=== PATIENT | male | born 1940 | race Caucasian/White ===

== ENCOUNTER → 2016-10-29 | Outpatient (CLI) | payer BC ==
[~2016-10-29] MED LIST: ASPEC325 PO; CYAN10005 PO; DILT120C50 PO; GLIP5TAB11 PO; INSUINJ SC; LPR100 PO; METF500T5 PO; WARF5TAB90 PO
[2016-10-29 10:39] LABS: ESTIMATED AVERAGE GLUCOSE 134 mg/dl; HA1C FLAG Normal (Normal)
== END ==
LOC: C.LABCC 09:05
PROVIDERS: ATTEND Internal Medicine
DX: E11.9 Type 2 diabetes mellitus without complications (principal)

== ENCOUNTER → 2016-12-24 | Outpatient (CLI) | payer BC ==
[2016-12-24 09:11] LABS: HEMATOCRIT 40.1 % (42-52); MEAN CELL VOLUME 97.8 fL (80-100); MEAN CORPUSCULAR HEMOGLOBIN 31.7 pg (25-34); MEAN CORPUSCULAR HGB CONC 32.4 g/dl (32-36); MEAN PLATELET VOLUME 13.4 fL (7.4-10.4); PLATELET COUNT 173 K/uL (130-400); WHITE BLOOD COUNT 6.43 K/uL (4.8-10.8)
[2016-12-24 09:18] LABS: CALCIUM 9.2 mg/dl (8.5-10.1)
[2016-12-24 09:19] LABS: ALT/SGPT 32 U/L (12-78); BLOOD UREA NITROGEN 20 mg/dl (7-18); BUN/CREATININE RATIO 26.5 (10-20); CARBON DIOXIDE 28 mmol/L (21-32); CHLORIDE 106 mmol/L (98-107); CREATININE 0.74 mg/dl (0.60-1.40); GLUCOSE 77 mg/dl (70-99); SODIUM 143 mmol/L (136-145)
[2016-12-24 09:29] LABS: ALB/GLOB RATIO 0.8 (0.9-2); ALKALINE PHOSPHATASE 76 U/L (45-117); AST/SGOT 18 U/L (15-37)
[2016-12-24 09:39] LABS: BASO % 0.3 %; BASO ABS # 0.02 K/uL (0-0.2); COMPLETE YES; EOS % 1.9 %; IG% 0.2 %; LYMPH % 51.6 %; LYMPH ABS # 3.32 K/uL (1.2-3.4); MONO % 9.6 %; NEUT % 36.4 %
== END ==
LOC: C.LABCC 08:00
PROVIDERS: ATTEND Internal Medicine
DX: I10 Essential (primary) hypertension (principal); E11.9 Type 2 diabetes mellitus without complications; F41.9 Anxiety disorder, unspecified; F03.90 Unspecified dementia, unspecified severity, without behavioral disturbance, psychotic disturbance, mood disturbance, and anxiety

== ENCOUNTER → 2017-03-01 | Outpatient (CLI) | payer BC ==
[~2017-03-01] MED LIST changes: +CRDCD120 PO; -DILT120C50 PO
[2017-03-01 11:19] LABS: ESTIMATED AVERAGE GLUCOSE 120 mg/dl; HA1C FLAG Normal (Normal)
== END ==
LOC: C.LABCC 10:24
PROVIDERS: ATTEND Internal Medicine
DX: E11.9 Type 2 diabetes mellitus without complications (principal)

== ENCOUNTER → 2017-04-27 | Outpatient (CLI) | payer BC ==
[2017-04-27 08:06] LABS: ALT/SGPT 18 U/L (12-78); AST/SGOT 10 U/L (15-37); BLOOD UREA NITROGEN 27 mg/dl (7-18); BUN/CREATININE RATIO 32.1 (10-20); CALCIUM 8.8 mg/dl (8.5-10.1); CARBON DIOXIDE 29 mmol/L (21-32); CHLORIDE 106 mmol/L (98-107); CREATININE 0.83 mg/dl (0.60-1.40); GLUCOSE 68 mg/dl (70-99); POTASSIUM 3.9 mmol/L (3.5-5.1); SODIUM 141 mmol/L (136-145)
[2017-04-27 08:08] LABS: ALB/GLOB RATIO 0.7 (0.9-2); ALKALINE PHOSPHATASE 74 U/L (45-117)
[2017-04-27 10:04] LABS: ESTIMATED AVERAGE GLUCOSE 120 mg/dl; HA1C FLAG Normal (Normal)
== END ==
LOC: C.LABCC 07:39
PROVIDERS: ATTEND Internal Medicine
DX: E11.9 Type 2 diabetes mellitus without complications (principal)

== ENCOUNTER → 2017-08-26 | Outpatient (CLI) | payer BC ==
[~2017-08-26] MED LIST changes: -CRDCD120 PO; +DILT-202 PO
[2017-08-26 08:43] LABS: HEMOGLOBIN A1C 5.8 % (4.5-5.6)
== END ==
LOC: C.LABCC 08:08
PROVIDERS: ATTEND Internal Medicine
DX: E11.9 Type 2 diabetes mellitus without complications (principal)

== ENCOUNTER 2017-10-19 16:41 | Inpatient (IN) | payer BC, OTHER ==
[~2017-10-19] VITALS: Ht 182.9 cm; Wt 85.2 kg
[2017-10-19] MEDS ORDERED: SODIUM CHLORIDE 0.9% 1000ML 1,000 ML IV STA (17:01)
[2017-10-19] MEDS ORDERED: PIPERACILLIN/TAZOBACTAM 4.5 GM/100ML D5W IV STA (17:09)
[2017-10-19] MEDS ORDERED: VANCOMYCIN 1GM ED/ASU OMNICELL IV STA (17:12)
[2017-10-19 17:14] LABS: ISTAT CREATININE 2.4 mg/dl (0.6-1.3); ISTAT IONIZED CALCIUM 1.12 mmol/l (1.12-1.32); ISTAT POTASSIUM 4.6 mEq/L (3.3-5.0)
--- NOTE | 2017-10-19 17:17 | DIAGNOSTIC IMAGING REPORT ---
SINGLE VIEW CHEST CLINICAL HISTORY: Sepsis. FINDINGS: An AP, portable, upright chest radiograph is compared to study dated 04/06/2015 and correlated with chest CT dated 12/08/2005. The heart is enlarged and there is atherosclerotic calcification of the thoracic aorta. The pulmonary vasculature is noncongested. Emphysema and chronic interstitial thickening are similar to previous. There is patchy airspace consolidation at the left lung base. The right lung is grossly clear. No large pleural effusion is identified. No pneumothorax is seen. The skeletal structures are osteopenic. The bony thorax is grossly intact. IMPRESSION: 1. Patchy airspace consolidation is seen at the left lung base and is typical in appearance for pneumonia. Clinical correlation will be required and radiographic follow-up to resolution is recommended. 2. Cardiomegaly and emphysema. Electronically signed by: Gregorio Marlow M.D. 10/19/2017 5:15 PM Dictated Date/Time: 10/19/2017 5:10 PM
[2017-10-19 17:22] LABS: MEAN CORPUSCULAR HGB CONC 31.6 g/dl (32-36)
[2017-10-19] MEDS ORDERED: ACETAMINOPHEN 650 MG SUPP PR STA (17:22)
[2017-10-19 17:32] LABS: INR 1.3 (0.9-1.1); PTT PATIENT 25.1 SECONDS (21.0-31.0)
[2017-10-19 17:33] LABS: HEMATOCRIT 50.9 % (42-52); HEMOGLOBIN 16.1 g/dL (14.0-18.0); MEAN CELL VOLUME 102.8 fL (80-100); MEAN CORPUSCULAR HEMOGLOBIN 32.5 pg (25-34); RED CELL DISTRIBUTION WIDTH CV 13.8 % (11.5-14.5); RED CELL DISTRIBUTION WIDTH SD 51.7 fL (36.4-46.3); WHITE BLOOD COUNT 6.83 K/uL (4.8-10.8)
[2017-10-19 17:53] LABS: ALKALINE PHOSPHATASE 117 U/L (45-117); ALT/SGPT 36 U/L (12-78); AST/SGOT 29 U/L (15-37); BLOOD UREA NITROGEN 67 mg/dl (7-18); CALCIUM 9.2 mg/dl (8.5-10.1); CARBON DIOXIDE 22 mmol/L (21-32); CREATININE 3.13 mg/dl (0.60-1.40); GLUCOSE 526 mg/dl (70-99); POTASSIUM 4.3 mmol/L (3.5-5.1); SODIUM 157 mmol/L (136-145)
[2017-10-19 18:00] LABS: BASO % 0.1 %; BASO ABS # 0.01 K/uL (0-0.2); IG# 0.02 K/uL (0.00-0.02); LYMPH % 21.4 %; LYMPH ABS # 1.46 K/uL (1.2-3.4); MONO % 6.3 %; MONO ABS # 0.43 K/uL (0.11-0.59); NEUT % 71.9 %; NEUT ABS # 4.91 K/uL (1.4-6.5); PLATELET COUNT 111 K/uL (130-400)
[2017-10-19] MEDS ORDERED: SODIUM CHLORIDE 0.9% 1000ML 1,000 ML IV SCH (18:04)
[2017-10-19] MEDS ORDERED: ACET-1311 PO (18:09)
[2017-10-19] MEDS ORDERED: ACET-1693 PO (18:12)
[2017-10-19] MEDS ORDERED: ASPI81TA28 PO (18:13)
[2017-10-19] MEDS ORDERED: DILT-115 PO (18:14)
[2017-10-19] MEDS ORDERED: DC ALL PREVIOUSLY ORDERED DIABETES MEDS ONE (18:15)
[2017-10-19] MEDS ORDERED: MoRPHine SULFATE 2 MG/ML CARP IV PRN (18:15)
[2017-10-19] MEDS ORDERED: ICU PROTOCOL FOR HYPERGLYCEMIA PRN (18:15)
[2017-10-19] MEDS ORDERED: DKA GOAL RANGE 150-250 mg/dl 1 EA ONE (18:15)
[2017-10-19] MEDS ORDERED: PHARMACY GLYCEMIC MGMT CONSULT PRN (18:15)
[2017-10-19] MEDS ORDERED: VANCOMYCIN CONSULT ACTIVE PRN (18:15)
[2017-10-19] MEDS ORDERED: MAGNESIUM HYDROXIDE SUSP 30 ML UDC PO PRN (18:15)
[2017-10-19] MEDS ORDERED: NITROGLYCERIN 0.4 MG SL PER TAB CHARGE SL PRN (18:15)
[2017-10-19] MEDS ORDERED: PIPERACILL/TAZOBAC CONSULT ACTIVE PRN (18:15)
[2017-10-19] MEDS ORDERED: SEVERE STRESS LEVEL ONE (18:15)
[2017-10-19] MEDS ORDERED: METOPROLOL TARTRATE 1 MG/ML VIAL IV PRN (18:15)
[2017-10-19] MEDS ORDERED: ONDANSETRON INJ 2 MG/ML 2 ML VIAL IV PRN (18:15)
[2017-10-19] MEDS ORDERED: ALUMINUM/MAGNESIUM/SIMETH (MAALOX MAX) 30 ML UDC PO PRN (18:15)
[2017-10-19] MEDS ORDERED: LORAZEPAM 1 MG TAB PO PRN (18:15)
[2017-10-19] MEDS ORDERED: BISA10SU3 PR (18:16)
[2017-10-19] MEDS ORDERED: INSPMPHMLG SQ (18:19)
[2017-10-19] MEDS ORDERED: INSU100I SQ (18:21)
[2017-10-19] MEDS ORDERED: LORA-741 PO (18:33)
[2017-10-19] MEDS ORDERED: METO100T14 PO (18:34)
[2017-10-19] MEDS ORDERED: TAMS0.4C38 PO (18:35)
[2017-10-19] MEDS ORDERED: EFF/375 PO (18:36)
[2017-10-19] MEDS ORDERED: INSULIN IV INFUSION PROTOCOL SCH (18:44)
[2017-10-19] MEDS ORDERED: NovoLIN R BOLUS FROM BAG IV ONE (19:00)
[2017-10-19] MEDS ORDERED: INSULIN REGULAR 250 UNITS in SODIUM CHLORIDE 0.9% 250ML 250 ML IV SCH (19:00)
[2017-10-19] MEDS ORDERED: INSULIN ASPART 100 UNITS/ML 3 ML PEN SC SCH (19:00)
--- NOTE | 2017-10-19 19:03 | History and Physical ---
History & Physical Date & Time of Service: Oct 19, 2017 at 18:36 Chief Complaint: Unresponsive Primary Care Physician: Evelin Rashid History of Present Illness Source: family, clinic records, hospital records Patient is a 77 y/o male, with PMHx of dementia, chronic a.fib, T2DM, anxiety/ depression, and BPH, who presented to ED from [facility] due to unresponsiveness and tachycardia. No history obtained from patient due to status. When patient arrived to ED, he was in a.fib w/ RVR- rates in 220s, hypotensive at 77/44, febrile at 38.7. He was cardioverted with 200J and HR improved. CXR showing L lung base PNA, UA dirty, evidence of DKA. He was treated w/ IV NSS bolus, Vancomycin and Zosyn x1 in ED. BPs and HR continue to improve. Daughter is at bedside. DNR/DNI, no extensive measures. Does not want central line placed. Daughter is OK with IV fluids, antibiotics, and additional noninvasive measures for this time being. ROS not obtained. Past Medical/Surgical History Medical Problems: dementia chronic a.fib T2DM BPH anxiety/depression back surgery 1986 Family History Diabetes mellitus Social History Smoking Status: Unknown if Ever Smoked Drug Use: none Marital Status: Occupational Status: retired Immunizations History of Influenza Vaccine: No History of Tetanus Vaccine?: Yes History of Pneumococcal: No History of Hepatitis B Vaccine: No Allergies Coded Allergies: No Known Allergies (Verified , 01/15/14) Home Medications Scheduled Acetaminophen Tab (Tylenol), 650 MG PO Q12 Aspirin (Aspirin), 81 MG PO QAM Aspirin (Aspirin Ec), 81 MG PO QAM Bisacodyl (Dulcolax), 10 MG AK PRN/UD Cyanocobalamin (Vitamin B-12), 1,000 MCG PO DAILY Diltiazem Hcl Ext Rel (Tiazac), 240 MG PO DAILY Glipizide (Glucotrol), 5 MG PO BID Insulin Lispro (Human) (Humalog), SQ PRN Insulin, Isophane Human (Nph) (Humulin N), 15 UNITS SC HS Lorazepam (Ativan), 0.25 MG PO HS Metformin Hcl Er (Glucophage Er), 500 MG PO BID Metoprolol Tartrate (Metoprolol Tartrate), 100 MG PO BID Metoprolol Tartrate (Lopressor) (Lopressor), 100 MG PO BID Tamsulosin Hcl (Flomax), 0.4 MG PO QPM Venlafaxine Hcl (Effexor), 37.5 MG PO QAM Warfarin Sodium (Coumadin), 1 TAB PO DAILY Scheduled PRN Acetaminophen (Tylenol), 650 MG PO Q12 PRN for PAIN OR TEMP> 100F Physical Exam Vital Signs Date Time Temp Pulse Resp B/P (MAP) Pulse Ox O2 Delivery O2 Flow Rate FiO2 10/19/17 18:15 126 30 127/86 100 Non-Rebreather 15.0 10/19/17 17:31 157 34 99/83 99 Non-Rebreather 15.0 10/19/17 16:51 204 10/19/17 16:45 38.7 222 52 77/44 99 Non-Rebreather 15.0 10/19/17 16:45 Room Air General Appearance: + mild distress Head: normocephalic, atraumatic Eyes: PERRL Neck: supple Respiratory/Chest: no respiratory distress, no accessory muscle use, + pertinent finding (course breath sounds throughout ) Cardiovascular: + tachycardia, + irregularly irregular Abdomen/GI: normal bowel sounds, non tender, soft Back: normal inspection Extremities/Musculoskelatal: no calf tenderness, no pedal edema Neurologic/Psych: + pertinent finding (nonresponsive ) Skin: normal color, warm/dry, no rash Diagnostics Laboratory Results Results Past 24 Hours Test 10/19/17 16:54 10/19/17 16:58 10/19/17 17:00 10/19/17 17:01 Range/Units White Blood Count 6.83 4.8-10.8 K/uL Red Blood Count 4.95 4.7-6.1 M/uL Hemoglobin 16.1 14.0-18.0 g/dL Hematocrit 50.9 42-52 % Mean Corpuscular Volume 102.8 80-100 fL Mean Corpuscular Hemoglobin 32.5 25-34 pg Mean Corpuscular Hemoglobin Concent 31.6 32-36 g/dl Platelet Count 111 130-400 K/uL Neutrophils (%) (Auto) 71.9 % Lymphocytes (%) (Auto) 21.4 % Monocytes (%) (Auto) 6.3 % Eosinophils (%) (Auto) 0.0 % Basophils (%) (Auto) 0.1 % Neutrophils # (Auto) 4.91 1.4-6.5 K/uL Lymphocytes # (Auto) 1.46 1.2-3.4 K/uL Monocytes # (Auto) 0.43 0.11-0.59 K/uL Eosinophils # (Auto) 0.00 0-0.5 K/uL Basophils # (Auto) 0.01 0-0.2 K/uL RDW Standard Deviation 51.7 36.4-46.3 fL RDW Coefficient of Variation 13.8 11.5-14.5 % Immature Granulocyte % (Auto) 0.3 % Immature Granulocyte # (Auto) 0.02 0.00-0.02 K/uL Prothrombin Time 13.6 9.0-12.0 SECONDS Prothromb Time International Ratio 1.3 0.9-1.1 Activated Partial Thromboplast Time 25.1 21.0-31.0 SECONDS Partial Thromboplastin Ratio 1.0 Sodium Level 157 136-145 mmol/L Potassium Level 4.3 3.5-5.1 mmol/L Chloride Level 119 98-107 mmol/L Carbon Dioxide Level 22 21-32 mmol/L Anion Gap 16.0 24.0 16-25 mmol/L Blood Urea Nitrogen 67 7-18 mg/dl Creatinine 3.13 0.60-1.40 mg/dl Estimated GFR () 21.2 Estimated GFR (Non- 18.3 BUN/Creatinine Ratio 21.2 10-20 Random Glucose 526 70-99 mg/dl Calcium Level 9.2 8.5-10.1 mg/dl Total Bilirubin 1.0 0.2-1 mg/dl Aspartate Amino Transf (AST/SGOT) 29 15-37 U/L Alanine Aminotransferase (ALT/SGPT) 36 12-78 U/L Alkaline Phosphatase 117 45-117 U/L Troponin I 0.081 0-0.045 ng/ml Total Protein 8.0 6.4-8.2 gm/dl Albumin 3.0 3.4-5.0 gm/dl Globulin 5.0 2.5-4.0 gm/dl Albumin/Globulin Ratio 0.6 0.9-2 Beta-Hydroxybutyric Acid 25.93 0.2-2.81 mg/dL Bedside Lactic Acid Venous 7.75 0.90-1.70 mmol/L Urine Color DK YELLOW Urine Appearance TURBID CLEAR Urine pH 5.5 4.5-7.5 Urine Specific [place] 1.020 1.000-1.030 Urine Protein 2+ NEG Urine Glucose (UA) 3+ NEG Urine Ketones TRACE NEG Urine Occult Blood 2+ NEG Urine Nitrite NEG NEG Urine Bilirubin NEG NEG Urine Urobilinogen NEG NEG Urine Leukocyte Esterase LARGE NEG Urine WBC (Auto) >30 0-5 /hpf Urine RBC (Auto) 5-10 0-4 /hpf Urine Hyaline Casts (Auto) 0-5 /lpf Urine Epithelial Cells (Auto) 20-30 0-5 /lpf Urine Bacteria (Auto) 4+ NEG Urine Pathogenic Casts 0 /lpf Urine Yeast (Auto) NONE PRSENT Bedside Hemoglobin 16.7 14.0-18.0 g/dl Bedside Hematocrit 49 42-52 % Bedside Sodium 161 135-144 mEq/L Bedside Potassium 4.6 3.3-5.0 mEq/L Bedside Chloride 120 101-112 mEq/L Bedside Total CO2 22 24-31 mEq/l Bedside Blood Urea Nitrogen 62 7-18 mg/dl Bedside Creatinine 2.4 0.6-1.3 mg/dl Bedside Glucose (other) 522 70-99 mg/dl Bedside Ionized Calcium ([place]) 1.12 1.12-1.32 mmol/l Test 10/19/17 18:04 Range/Units Microbiology Results 10/19/17 Blood Culture, Received Pending 10/19/17 Blood Culture, Received Pending 10/19/17 Urine Culture, Received Pending Diagnostic Radiology SINGLE VIEW CHEST CLINICAL HISTORY: Sepsis. FINDINGS: An AP, portable, upright chest radiograph is compared to study dated 04/06/2015 and correlated with chest CT dated 12/08/2005. The heart is enlarged and there is atherosclerotic calcification of the thoracic aorta. The pulmonary vasculature is noncongested. Emphysema and chronic interstitial thickening are similar to previous. There is patchy airspace consolidation at the left lung base. The right lung is grossly clear. No large pleural effusion is identified. No pneumothorax is seen. The skeletal structures are osteopenic. The bony thorax is grossly intact. IMPRESSION: 1. Patchy airspace consolidation is seen at the left lung base and is typical in appearance for pneumonia. Clinical correlation will be required and radiographic follow-up to resolution is recommended. 2. Cardiomegaly and emphysema. Electronically signed by: Gregorio Marlow M.D. 10/19/2017 5:15 PM Dictated Date/Time: 10/19/2017 5:10 PM The status of this report is Signed. Draft = Not yet reviewed or approved by Radiologist. Signed = Reviewed and approved by Radiologist. EKG JAZMIN LARRY ID:[id number] 19-OCT-2017 17:18:43 [facility] Poor data quality, interpretation may be adversely affected Atrial fibrillation with rapid ventricular response Left axis deviation Nonspecific ST and T wave abnormality Abnormal ECG When compared with ECG of 06-APR-2015 16:37, ST now depressed in Lateral leads Nonspecific T wave abnormality now evident in Lateral leads 25mm/s 10mm/mV 150Hz 8.0 SP2 12SL 241 ROME: 0 Referred by: Referred Self Unconfirmed Vent. rate 155 BPM AK interval * ms QRS duration 76 ms QT/QTc 328/526 ms P-R-T axes * -38 41 1940 (77 yr) Male 109in 1lb Room:[facility] Loc:15 [employer] Maker:MYLES Chung ind: Impression Assessment and Plan Patient is a 77 y/o male, with PMHx of dementia, chronic a.fib, T2DM, and BPH, who presented to ED from [facility] due to unresponsiveness and tachycardia. Chronic a.fib w/ RVR, sepsis secondary to L lung base PNA/UTI POA: - Admit to ICU- director of epidemiology consulted - Trend cardiac enzymes - Continue Diltiazem and Metoprolol w/ hold parameter and IV Metoprolol PRN for HR >120 w/ hold parameters - Will hold Coumadin and place on IV Heparin gtt - DuoNebs QID and PRN for SOB/wheezing - IV Vancomycin + Zosyn - BCx, UCx, MRSA swab pending DKA, T2DM: - Hold Metformin and Glipizide - DKA protocol- IVF, insulin, follow labs - Pharmacy consulted for glycemic management ALONDRA likely secondary to dehydration: IV NSS @ 150 ml/hr, follow PRP Anxiety/depression: Hold Effexor BPH: Hold Flomax GI prophylaxis: IV Protonix DVT prophylaxis: IV Heparin Code status: LEVEL V, DNR Dispo: From [facility] Attending documentation: Patient seen and examined, chart reviewed, case discussed with AN Hernandez and I agree with her assessment and plan as above. Briefly, patient is a 77yo male with history of dementia, AF, and DM. He is a resident of [facility] and was send here due to tachycardia and unresponsiveness. When he arrived to the ED he was tachycardic with HR 220 and SBP in the 70s. He was cardioverted with 200 J with improvement in hemodynamics. Physical exam: Patient tachycardic at 116. He is unresponsive/obtunded, does not respond to verbal stimuli, does not follow commands. He is thin, chronically ill appearing. HEENT with dry mucus membranes and poor oral care. Neck supple. +S1/S2, irregularly irregular, tachycardic, no m/r/g, Lungs with coarse breath sounds bilaterally, abdomen soft, NT/ND. No LE edema Labs significant for NA of 157, Mj=255, BUN=67, Cr=3.13, Jgn=811, Lactate=7.75, Trop=0.081 and +UA Assessment: 77yo male with dementia, AF, DM presenting with AMS/tachycardia and multiple metabolic derangement. 1. Hypernatremia No=126. Free water deficit of 2.2 L, will give D5W at 80mL/ hr, frequent Na checks 2. Hyperglycemia insulin gtt per protocol 3. AF Continue Diltiazem and Metoprolol for rate control, Heparin gtt for anticoagulation 4. Vanc and Zosyn for possible infectious source, taylor culture and deescalate abx as appropriate 5. Remainder of plan as above Resuscitation Status LEVEL V, DNR VTE Prophylaxis Will order VTE Prophylaxis: Yes
[2017-10-19] MEDS ORDERED: DEXTROSE 5% 1000ML 1,000 ML IV SCH (19:30)
[2017-10-19] MEDS ORDERED: HEPARIN 25000 UNIT/500 ML D5W ONE (19:37)
[2017-10-19] MEDS ORDERED: HEPARIN SOD (PORCINE) 1000 UNIT/ML 10 ML VIAL ONE (19:37)
[2017-10-19 19:44] LABS: CALCIUM 8.7 mg/dl (8.5-10.1); CREATININE 2.94 mg/dl (0.60-1.40); POTASSIUM 4.5 mmol/L (3.5-5.1)
[2017-10-19] MEDS ORDERED: HEPARIN 25,000 UNIT/500ML D5W 500 ML IV SCH (19:45)
[2017-10-19] MEDS ORDERED: PANTOprazole INJ 40 MG in SYRINGE 0 ML IV ONE (19:52)
--- NOTE | 2017-10-19 19:53 | Critical Care Consultation ---
Critical Care Consultation Date of Consultation: Oct 19, 2017. Attending Physician: Dr. Shanta Paige Reason for Consultation: Unresponsiveness History of Present Illness Wai Salazar is a 77 yo male who presents to the hospital today 2/2 being found unresponsive and tachycardic in the 200's at [facility] where he is a resides. Daughter was present prior to my arrival and did state to Dr. Mota that pt is a DNR/DNI. He is to have no advanced lines as well. He may be cardioverted and receive blood products. At this point, pt was cardioverted once in the ED for a HR of 220 at which point is SBP was in the 70s. Vitals did improved. Pt is febrile and CXR demonstrates LLL PNA. U/A demonstrates signs of infection. Labs are significant for DKA, BSG 526, Cr 3.13 , Sodium 157, and elevated troponin. Pts ED course included IV Zosyn and Vancomycin. NSS Bolus x 1 with LR running. ROS could not be obtained secondary to pt unresponsiveness at this time. PMHx includes chronic A. Fib, T2DM, anxiety/depression, CVA with progressive dementia in 2014, and BPH. Past Medical/Surgical History Medical Problems: Dementia Diabetes mellitus Anxiety Depression T2DM Chronic A. Fib CVA 2014 Surgical Hx: Back Hx 1986 Family History Diabetes mellitus Non-Contributory Social History Smoking Status: Unknown if Ever Smoked Drug Use: none Marital Status: Housing Status: [facility] Occupation Status: retired Allergies Coded Allergies: No Known Allergies (Verified , 01/15/14) Home Medications Scheduled Acetaminophen Tab (Tylenol), 650 MG PO Q12 Aspirin (Aspirin), 81 MG PO QAM Aspirin (Aspirin Ec), 81 MG PO QAM Bisacodyl (Dulcolax), 10 MG DC PRN/UD Cyanocobalamin (Vitamin B-12), 1,000 MCG PO DAILY Diltiazem Hcl Ext Rel (Tiazac), 240 MG PO DAILY Glipizide (Glucotrol), 5 MG PO BID Insulin Lispro (Human) (Humalog), SQ PRN Insulin, Isophane Human (Nph) (Humulin N), 15 UNITS SC HS Lorazepam (Ativan), 0.25 MG PO HS Metformin Hcl Er (Glucophage Er), 500 MG PO BID Metoprolol Tartrate (Metoprolol Tartrate), 100 MG PO BID Metoprolol Tartrate (Lopressor) (Lopressor), 100 MG PO BID Tamsulosin Hcl (Flomax), 0.4 MG PO QPM Venlafaxine Hcl (Effexor), 37.5 MG PO QAM Warfarin Sodium (Coumadin), 1 TAB PO DAILY Scheduled PRN Acetaminophen (Tylenol), 650 MG PO Q12 PRN for PAIN OR TEMP> 100F Current Inpatient Medications Current Inpatient Medications Medications (Trade) Dose Ordered Sig/Дмитрий Route Start Time Stop Time Status Last Admin Dose Admin Lorazepam (Ativan Tab) 1 mg Q6H PRN PO 10/19/17 18:15 11/18/17 18:14 Nitroglycerin (Nitrostat Tab) 0.4 mg UD PRN SL 10/19/17 18:15 11/18/17 18:14 Al Hydrox/Mg Hydrox/Simethicone (Maalox Max Susp) 15 ml Q4H PRN PO 10/19/17 18:15 11/18/17 18:14 Magnesium Hydroxide (Milk Of Magnesia Susp) 30 ml Q12H PRN PO 10/19/17 18:15 11/18/17 18:14 Ondansetron HCl (Zofran Inj) 4 mg Q6H PRN IV 10/19/17 18:15 11/18/17 18:14 Levalbuterol (Xopenex 1.25MG/ 0.5ML Neb) 1.25 mg QIDR INH 10/19/17 20:00 11/18/17 19:59 Ipratropium [place] (Atrovent 0.02% 0.5MG/2.5ML Neb) 0.5 mg QIDR INH 10/19/17 20:00 11/18/17 19:59 Morphine Sulfate (MoRPHine SULFATE INJ) 2 mg Q2H PRN IV 10/19/17 18:15 11/02/17 18:14 Miscellaneous Information (Icu Protocol For Hyperglycemia) 1 ea PRN PRN N/A 10/19/17 18:15 10/21/17 18:14 Insulin Aspart (novoLOG ASPART) SLIDING SCALE PCHS SC 10/19/17 19:00 11/18/17 18:59 Sodium Chloride 1,000 ml @ 150 mls/hr Q6H40M IV 10/19/17 18:04 11/18/17 18:03 UNV Miscellaneous Information (PENDING NSS+20mEq KCL IVF) 1 ea Q2H N/A 10/19/17 18:15 11/18/17 18:14 Miscellaneous Information (PENDING D5 1/ 2NS+20mEq KCL IVF) 1 ea Q2H N/A 10/19/17 18:15 11/18/17 18:14 Miscellaneous Information (Consult Glycemic Management Pharmacy) 1 ea UD PRN N/A 10/19/17 18:15 11/18/17 18:14 Vancomycin HCl 1000 mg/Sodium Chloride 270 ml @ 125 mls/hr Q12 IV 10/19/17 21:00 10/26/17 20:59 UNV Miscellaneous Information (Consult) 1 ea UD PRN N/A 10/19/17 18:15 11/18/17 18:14 Piperacillin Sod/ Tazobactam Sod 3.375 gm/Dextrose 115 ml @ 28.75 mls/ hr Q8 IV 10/19/17 22:00 10/26/17 21:59 UNV Miscellaneous Information (Consult) 1 ea UD PRN N/A 10/19/17 18:15 11/18/17 18:14 Diltiazem HCl (TIAzac CAP) 240 mg DAILY PO 10/20/17 09:00 11/19/17 08:59 Metoprolol Tartrate (Lopressor Tab) 100 mg BID PO 10/19/17 21:00 11/18/17 20:59 Metoprolol Tartrate (Lopressor Iv) 5 mg Q4 PRN IV. 10/19/17 18:15 11/18/17 18:14 UNV Heparin Sodium/ Dextrose 1 ea Q15M N/A 10/19/17 18:48 11/18/17 18:47 Pantoprazole Sodium 40 mg/ Syringe 10 ml @ 5 mls/min NOW ONCE IV 10/19/17 19:00 10/19/17 19:01 UNV Insulin Human Regular 250 units/ Sodium Chloride 252.5 ml @ 0 mls/hr Q24H IV 10/19/17 19:00 11/18/17 18:59 Review of Systems ROS unattainable 2/2 to pt being unresponsive. Physical Exam Date Time Temp Pulse Resp B/P (MAP) Pulse Ox O2 Delivery O2 Flow Rate FiO2 10/19/17 18:58 38.0 119 34 115/67 100 Non-Rebreather 10/19/17 18:15 126 30 127/86 100 Non-Rebreather 15.0 10/19/17 17:31 157 34 99/83 99 Non-Rebreather 15.0 10/19/17 16:51 204 10/19/17 16:45 38.7 222 52 77/44 99 Non-Rebreather 15.0 10/19/17 16:45 Room Air Vital Signs - as noted Laboratory Data - as noted Physical Exam: General - Laying in bed, 15L non-rebreather in place, no response to verbal stimuli Eyes - PERRL, No icterus, gaze conjugate ENT - Mucosa dry, no lesions or candidiasis, edentulous Neck - Supple, trachea midline, no masses or lymphadenopathy, no JVD or bruits Lungs - No paradoxical chest wall movement, extremely coarse, no wheezes or rales Heart - A fib RVR, No murmur, rubs, clicks, or gallops appreciated Abdomen - BS present, no bruits noted, tympanic to percussion, soft, nondistended, no organomegaly Extremities - No edema, weak pedal pulses intact Neuro - [place] Coma Score: 6 Strength: Movement noted to all extremities Reflexes: normal and equal CN:PERRL, no facial asymmetry, uvula/tongue midline, no unilateral signs noted Laboratory Results Last 24 Hours Test 10/19/17 16:54 10/19/17 16:58 10/19/17 17:00 10/19/17 17:01 White Blood Count 6.83 K/uL Red Blood Count 4.95 M/uL Hemoglobin 16.1 g/dL Hematocrit 50.9 % Mean Corpuscular Volume 102.8 fL Mean Corpuscular Hemoglobin 32.5 pg Mean Corpuscular Hemoglobin Concent 31.6 g/dl Platelet Count 111 K/uL Neutrophils (%) (Auto) 71.9 % Lymphocytes (%) (Auto) 21.4 % Monocytes (%) (Auto) 6.3 % Eosinophils (%) (Auto) 0.0 % Basophils (%) (Auto) 0.1 % Neutrophils # (Auto) 4.91 K/uL Lymphocytes # (Auto) 1.46 K/uL Monocytes # (Auto) 0.43 K/uL Eosinophils # (Auto) 0.00 K/uL Basophils # (Auto) 0.01 K/uL RDW Standard Deviation 51.7 fL RDW Coefficient of Variation 13.8 % Immature Granulocyte % (Auto) 0.3 % Immature Granulocyte # (Auto) 0.02 K/uL Prothrombin Time 13.6 SECONDS Prothromb Time International Ratio 1.3 Activated Partial Thromboplast Time 25.1 SECONDS Partial Thromboplastin Ratio 1.0 Sodium Level 157 mmol/L Potassium Level 4.3 mmol/L Chloride Level 119 mmol/L Carbon Dioxide Level 22 mmol/L Anion Gap 16.0 mmol/L 24.0 mmol/L Blood Urea Nitrogen 67 mg/dl Creatinine 3.13 mg/dl Estimated GFR () 21.2 Estimated GFR (Non- 18.3 BUN/Creatinine Ratio 21.2 Random Glucose 526 mg/dl Calcium Level 9.2 mg/dl Total Bilirubin 1.0 mg/dl Aspartate Amino Transf (AST/SGOT) 29 U/L Alanine Aminotransferase (ALT/SGPT) 36 U/L Alkaline Phosphatase 117 U/L Troponin I 0.081 ng/ml Total Protein 8.0 gm/dl Albumin 3.0 gm/dl Globulin 5.0 gm/dl Albumin/Globulin Ratio 0.6 Beta-Hydroxybutyric Acid 25.93 mg/dL Bedside Lactic Acid Venous 7.75 mmol/L Urine Color DK YELLOW Urine Appearance TURBID Urine pH 5.5 Urine Specific [place] 1.020 Urine Protein 2+ Urine Glucose (UA) 3+ Urine Ketones TRACE Urine Occult Blood 2+ Urine Nitrite NEG Urine Bilirubin NEG Urine Urobilinogen NEG Urine Leukocyte Esterase LARGE Urine WBC (Auto) >30 /hpf Urine RBC (Auto) 5-10 /hpf Urine Hyaline Casts (Auto) /lpf Urine Epithelial Cells (Auto) 20-30 /lpf Urine Bacteria (Auto) 4+ Urine Pathogenic Casts /lpf Urine Yeast (Auto) Bedside Hemoglobin 16.7 g/dl Bedside Hematocrit 49 % Bedside Sodium 161 mEq/L Bedside Potassium 4.6 mEq/L Bedside Chloride 120 mEq/L Bedside Total CO2 22 mEq/l Bedside Blood Urea Nitrogen 62 mg/dl Bedside Creatinine 2.4 mg/dl Bedside Glucose (other) 522 mg/dl Bedside Ionized Calcium ([place]) 1.12 mmol/l Test 10/19/17 18:57 Diagnostic Results SINGLE VIEW CHEST CLINICAL HISTORY: Sepsis. FINDINGS: An AP, portable, upright chest radiograph is compared to study dated 04/06/2015 and correlated with chest CT dated 12/08/2005. The heart is enlarged and there is atherosclerotic calcification of the thoracic aorta. The pulmonary vasculature is noncongested. Emphysema and chronic interstitial thickening are similar to previous. There is patchy airspace consolidation at the left lung base. The right lung is grossly clear. No large pleural effusion is identified. No pneumothorax is seen. The skeletal structures are osteopenic. The bony thorax is grossly intact. IMPRESSION: 1. Patchy airspace consolidation is seen at the left lung base and is typical in appearance for pneumonia. Clinical correlation will be required and radiographic follow-up to resolution is recommended. 2. Cardiomegaly and emphysema. Electronically signed by: Gregorio Marlow M.D. 10/19/2017 5:15 PM Dictated Date/Time: 10/19/2017 5:10 PM Assessment & Plan (1) ALONDRA (acute kidney injury) (2) Unresponsive state (3) DKA, type 2 (4) Pneumonia (5) Diabetes mellitus (6) Dementia (7) Sepsis Reason Critically Ill: Patient is an 77-year-old male who is transferred to the ICU for Altered Mental Status likely 2/2 to infection UTI and LLL PNA in addition to A. Fib RVR requiring cardioversion in ED with 200J. Pts initial hypotension has mildly improved secondary to rate correction. SBP in the mid 90 's on my initial exam. Pt also present in DKA likely 2/2 to concurrent infection. BSG > 500 PLAN: CV: * Hx of Chronic A. Fib * Today A. Fib RVR requiring cardioversion 200J in ED with improvement of vitals * HR: Currently 144, SBP 91/61 * Per Dr. Mota will hold BB at this time and continue volume expansion * Continue Heparin Infusion * Troponin Elevated * Likely demand ischemia secondary to significant tachycardia with Rate > 200 * A. fib with RVR with Rate related changes * Will repeat EKG in ICU * Trend Troponin * Hypotension * Per daughter: No vasopressor medication to be use. * Monitor telemetry Resp: * DNI/DNR: Continue supplemental O2 as indicated * LLL PNA * Continue IV Zosyn and Vanco * Trend Lactic Acid q 8hrs * Respiratory Regimen in place * Once mental status improves Incentive Spirometer or Flutter Valve * Pt currently on 15L non-rebreather. * Likely will become fluid overload despite dehydration. * Begin BiPap to reduce FIO2. Will Humidify Circuit. Fluids/Renal: * ALONDRA * Cr 3.13, Prior Values < 1 * Continue Hydration at this point * Pts daughter declines HD if required * Potassium, Calcium, and Phos currently WNL, will trend and treat accordingly * Benz to [place] * UTI * U/A Turbid, Ketones, Heme, Leuk Est, & Bacteria Positive * Continue ABX Coverage as listed in Resp * Trend Electrolytes and monitor closely * Pt will be undergoing a insulin infusion and will likely require Potassium Supplementation * 2/2 to ALONDRA will follow closely * BMP q4h overnight * Hypernatremia * Adjusted for hyperglycemia * 163 * Continue LR at this time. Will trend Endocrine: * DKA * Insulin infusion per protocol * Per protocol check electrolytes, Venous blood pH, BMP q 4hrs until DKA is resolved * LR at 250mls/hr * No hx of thyroid dz * Check TSH with next lab draw. Neuro: * PRN pain medication * Pt currently hypotensive will monitor pain level * AMS * Likely 2/2 to infection * No heroic measures to be taken * Neuro checks per ICU Protocol ID: * Trend Lactic q8h * Obtain one Procalcitonin and then trend q72hrs * Continue Abx: * Zosyn * Vancomycin: Monitor levels per CrCl GI/Nutrition: * Insert NG tube for oral medications * NPO except meds * No indication for GI Prophylaxis Heme: * H&H WNL * Plts Stable * DVT Prophylaxis: Heparin infusion in place for A. Fib CCT: 60 Minutes; This time is exclusive of all separately billable procedures. Thank you for involving us in the care of this patient. Please refer to Dr. Jossue Mota's addendum for further recommendations. I have personally evaluated and examined this patient. I agree with assessment and plan of Madhu Bloom PA-C. My evaluation occurred prior to that of Madhu Bloom, approximately 1800 until 1845. An extensive discussion with the patient's daughter regarding prognosis, goals of care. Patient is certainly critically ill secondary to profound dehydration , left lung pneumonia and cardiac dysrhythmia. In accordance with his wishes she did not want aggressive measures including resuscitation in event of cardiac arrest, central venous access, intubation in event of decompensation. Patient's daughter was comfortable with electrical cardioversion should unstable cardiac arrhythmia develop. At this point we will continue to volume expand the patient and treat the hyperglycemia with insulin infusion, we will attempt to supplement K to the best of our ability with the peripheral lines and attempts to obtain oral access to administer enteral potassium. I have personally spent 45 minutes of critical care time in the direct management of this patient. This is a life/limb threatening event. This includes time spent evaluating patient, direct bedside care, chart review, placing orders, interpretation of diagnostic studies, discussion with consultants, patient, and/or family members regarding treatment decisions, as well as other required patient management activities. This time is exclusive of all separately billable procedures, and teaching time and separate from and in addition to any other critical care service time. Problem Qualifiers (1) Sepsis: Sepsis type: sepsis due to unspecified organism Qualified Codes: A41.9 - Sepsis, unspecified organism
[2017-10-19] MEDS: LEVALBUTEROL 1.25MG/0.5ML NEB INH SCH (20:00)
[2017-10-19] MEDS: IPRATROPIUM BROMIDE NEB SOLN 0.02% 2.5 ML VIAL INH SCH (20:00)
[2017-10-19 20:49] VITALS: BP 115/61; PULSE 115; TEMP 38.2
[2017-10-19 20:52] VITALS: BP 115/61; PULSE 138; TEMP 38.2; O2SAT 94; BMI 24.8
[2017-10-19] MEDS: METOPROLOL TARTRATE 100 MG TAB PO SCH (21:00)
[2017-10-19] MEDS ORDERED: POTASSIUM CHLR 10 MEQ / WTR 10 MEQ in PREMIXED WATER 100 ML IV ONE (21:00)
[2017-10-19] MEDS: PENDING D5 1/2NS+20mEq KCL IVF SCH ×2 (21:11→22:10)
[2017-10-19] MEDS: PENDING NSS+20mEq KCL IVF SCH ×2 (21:11→22:10)
[2017-10-19] MEDS ORDERED: VANCOMYCIN IV 750 MG in SODIUM CHLORIDE 0.9% 250ML 250 ML IV ONE (21:15)
[2017-10-19 21:21] VITALS: BP 96/56; PULSE 139; TEMP 38.2; O2SAT 94
[2017-10-19] MEDS: LACTATED RINGER'S 1000ML 1,000 ML IV SCH (21:24)
[2017-10-19 21:43] LABS: PHOSPHORUS 3.6 mg/dl (2.5-4.9)
[2017-10-19] MEDS ORDERED: PIPERACILL/TAZOBAC IV 3.375 GM in DEXTROSE 5% 100ML 100 ML IV SCH (22:00)
[2017-10-19 22:10] VITALS: BP 82/22; PULSE 122; TEMP 38.3; O2SAT 87
[2017-10-19 22:13] VITALS: PULSE 144; O2SAT 93
--- NOTE | 2017-10-19 22:25 | EMERGENCY ROOM VISIT NOTE ---
History Report prepared by Ric: Antonio De Leon Under the Supervision of: Dr. Hamzah Alexis M.D. First contact with patient: 16:48 Stated Complaint: UNRESPONSIVE History of Present Illness HPI Limited due to unresponsiveness. The patient is a 77 year old male who presents to the Emergency Room via EMS unresponsive and tachycardic. The patient is a resident at [facility], where the staff state he was unresponsive sine 0700 this morning, 10 hours ago. The patient has had a low blood pressure, tachycardic HR, and been tachypneic since this morning. His HR was in the 220s. The patient does have a signed DNR request. Per EMS, the nursing staff at [facility] note that he has been "declining" for the past couple of days. When the patient's daughter arrived to the ED she noted that the patient is not really able to have a conversation at baseline and has had dementia for many years. She received a call from [facility] yesterday and was informed that the patient was having trouble swallowing. She notes that he has this issue often. He is usually on a liquid diet, but [facility] notes that he has not been eating well lately. She states that they report he has not eaten in 3 days. The daughter confirms that he is on a blood thinner, and confirms the DNR status. She is agreeable to cardioversion if necessary. Source of History: EMS History Limited By: AMS Onset: 0700, 10 hours ago Position: head (AMS) Quality: other (Unresponsive) Review of Systems Limited due to the patient being unresponsive Past Medical & Surgical Medical Problems: (1) ALONDRA (acute kidney injury) (2) back surgery 1985 (3) Dementia (4) Diabetes mellitus (5) DKA, type 2 (6) Unresponsive state Family History Diabetes mellitus Social History Smoking Status: Former Smoker Drug Use: none Marital Status: Housing Status: lives with family Occupation Status: retired Current/Historical Medications Scheduled Acetaminophen Tab (Tylenol), 650 MG PO Q12 Aspirin (Aspirin), 81 MG PO QAM Aspirin (Aspirin Ec), 81 MG PO QAM Bisacodyl (Dulcolax), 10 MG OR PRN/UD Cyanocobalamin (Vitamin B-12), 1,000 MCG PO DAILY Diltiazem Hcl Ext Rel (Tiazac), 240 MG PO DAILY Glipizide (Glucotrol), 5 MG PO BID Insulin Lispro (Human) (Humalog), SQ PRN Insulin, Isophane Human (Nph) (Humulin N), 15 UNITS SC HS Lorazepam (Ativan), 0.25 MG PO HS Metformin Hcl Er (Glucophage Er), 500 MG PO BID Metoprolol Tartrate (Metoprolol Tartrate), 100 MG PO BID Metoprolol Tartrate (Lopressor) (Lopressor), 100 MG PO BID Tamsulosin Hcl (Flomax), 0.4 MG PO QPM Venlafaxine Hcl (Effexor), 37.5 MG PO QAM Warfarin Sodium (Coumadin), 1 TAB PO DAILY Scheduled PRN Acetaminophen (Tylenol), 650 MG PO Q12 PRN for PAIN OR TEMP> 100F Allergies Coded Allergies: No Known Allergies (Verified , 01/15/14) Physical Exam Vital Signs Date Time Temp Pulse Resp B/P (MAP) Pulse Ox O2 Delivery O2 Flow Rate FiO2 10/19/17 18:15 126 30 127/86 100 Non-Rebreather 15.0 10/19/17 17:31 157 34 99/83 99 Non-Rebreather 15.0 10/19/17 16:51 204 10/19/17 16:45 38.7 222 52 77/44 99 Non-Rebreather 15.0 10/19/17 16:45 Room Air Physical Exam Limited due to unresponsive, Constitutional: Vital signs reviewed. Physical limited due to unresponsiveness. Eyes: Pupils are equal round reactive to light. Conjunctiva are noninjected. ENT: Pharynx is clear without erythema or exudate. Mucous membranes are dry. Neck supple without meningeal signs. Respiratory: Patient is tachypneic, there are rhonchus breath sounds throughout with thick oral secretions. Cardiovascular: Tachycardic heart rate in the 200s. No rubs or gallops. GI: Soft, nondistended and nontender. Bowel sounds are present. Musculoskeletal: No peripheral edema. No lower extremity tenderness. Integumentary: No cyanosis. Neurological: The patient is awake and nonverbal. Psychiatric: unable to assess. Medical Decision & Procedures ER Provider Diagnostic Interpretation: Radiology results as stated below per my review and the radiologist's interpretation: SINGLE VIEW CHEST CLINICAL HISTORY: Sepsis. FINDINGS: An AP, portable, upright chest radiograph is compared to study dated 04/06/2015 and correlated with chest CT dated 12/08/2005. The heart is enlarged and there is atherosclerotic calcification of the thoracic aorta. The pulmonary vasculature is noncongested. Emphysema and chronic interstitial thickening are similar to previous. There is patchy airspace consolidation at the left lung base. The right lung is grossly clear. No large pleural effusion is identified. No pneumothorax is seen. The skeletal structures are osteopenic. The bony thorax is grossly intact. IMPRESSION: 1. Patchy airspace consolidation is seen at the left lung base and is typical in appearance for pneumonia. Clinical correlation will be required and radiographic follow-up to resolution is recommended. 2. Cardiomegaly and emphysema. Electronically signed by: Gregorio Marlow M.D. 10/19/2017 5:15 PM Dictated Date/Time: 10/19/2017 5:10 PM Laboratory Results 10/19/17 16:54 Red Blood Count 4.95, Mean Corpuscular Volume 102.8, Mean Corpuscular Hemoglobin 32.5, Mean Corpuscular Hemoglobin Concent 31.6, Neutrophils (%) (Auto ) 71.9, Lymphocytes (%) (Auto) 21.4, Monocytes (%) (Auto) 6.3, Eosinophils (%) ( Auto) 0.0, Basophils (%) (Auto) 0.1, Neutrophils # (Auto) 4.91, Lymphocytes # ( Auto) 1.46, Monocytes # (Auto) 0.43, Eosinophils # (Auto) 0.00, Basophils # ( Auto) 0.01 Test 10/19/17 16:54 10/19/17 16:58 10/19/17 17:00 10/19/17 17:01 White Blood Count 6.83 K/uL (4.8-10.8) Red Blood Count 4.95 M/uL (4.7-6.1) Hemoglobin 16.1 g/dL (14.0-18.0) Hematocrit 50.9 % (42-52) Mean Corpuscular Volume 102.8 fL (80-100) Mean Corpuscular Hemoglobin 32.5 pg (25-34) Mean Corpuscular Hemoglobin Concent 31.6 g/dl (32-36) Platelet Count 111 K/uL (130-400) Neutrophils (%) (Auto) 71.9 % Lymphocytes (%) (Auto) 21.4 % Monocytes (%) (Auto) 6.3 % Eosinophils (%) (Auto) 0.0 % Basophils (%) (Auto) 0.1 % Neutrophils # (Auto) 4.91 K/uL (1.4-6.5) Lymphocytes # (Auto) 1.46 K/uL (1.2-3.4) Monocytes # (Auto) 0.43 K/uL (0.11-0.59) Eosinophils # (Auto) 0.00 K/uL (0-0.5) Basophils # (Auto) 0.01 K/uL (0-0.2) RDW Standard Deviation 51.7 fL (36.4-46.3) RDW Coefficient of Variation 13.8 % (11.5-14.5) Immature Granulocyte % (Auto) 0.3 % Immature Granulocyte # (Auto) 0.02 K/uL (0.00-0.02) Prothrombin Time 13.6 SECONDS (9.0-12.0) Prothromb Time International Ratio 1.3 (0.9-1.1) Activated Partial Thromboplast Time 25.1 SECONDS (21.0-31.0) Partial Thromboplastin Ratio 1.0 Total Bilirubin 1.0 mg/dl (0.2-1) Aspartate Amino Transf (AST/SGOT) 29 U/L (15-37) Alanine Aminotransferase (ALT/SGPT) 36 U/L (12-78) Alkaline Phosphatase 117 U/L (45-117) Troponin I 0.081 ng/ml (0-0.045) Total Protein 8.0 gm/dl (6.4-8.2) Albumin 3.0 gm/dl (3.4-5.0) Globulin 5.0 gm/dl (2.5-4.0) Albumin/Globulin Ratio 0.6 (0.9-2) Bedside Lactic Acid Venous 7.75 mmol/L (0.90-1.70) Urine Color DK YELLOW Urine Appearance TURBID (CLEAR) Urine pH 5.5 (4.5-7.5) Urine Specific [place] 1.020 (1.000-1.030) Urine Protein 2+ (NEG) Urine Glucose (UA) 3+ (NEG) Urine Ketones TRACE (NEG) Urine Occult Blood 2+ (NEG) Urine Nitrite NEG (NEG) Urine Bilirubin NEG (NEG) Urine Urobilinogen NEG (NEG) Urine Leukocyte Esterase LARGE (NEG) Urine WBC (Auto) >30 /hpf (0-5) Urine RBC (Auto) 5-10 /hpf (0-4) Urine Hyaline Casts (Auto) /lpf (0-5) Urine Epithelial Cells (Auto) 20-30 /lpf (0-5) Urine Bacteria (Auto) 4+ (NEG) Urine Pathogenic Casts /lpf (0) Urine Yeast (Auto) (NONE PRSENT) Bedside Hemoglobin 16.7 g/dl (14.0-18.0) Bedside Hematocrit 49 % (42-52) Bedside Sodium 161 mEq/L (135-144) Bedside Potassium 4.6 mEq/L (3.3-5.0) Bedside Chloride 120 mEq/L (101-112) Bedside Total CO2 22 mEq/l (24-31) Bedside Blood Urea Nitrogen 62 mg/dl (7-18) Bedside Creatinine 2.4 mg/dl (0.6-1.3) Bedside Glucose (other) 522 mg/dl (70-99) Bedside Ionized Calcium (Adelso) 1.12 mmol/l (1.12-1.32) Laboratory results as reviewed by me. Medications Administered Medications (Trade) Dose Ordered Sig/Дмитрий Route Start Time Stop Time Status Last Admin Dose Admin Sodium Chloride 1,000 ml @ 999 mls/hr Q1H1M STAT IV 10/19/17 17:01 10/19/17 18:01 DC 10/19/17 17:03 999 MLS/HR Piperacillin Sod/ Tazobactam Sod (Zosyn Iv) 4.5 gm NOW STAT IV 10/19/17 17:09 10/19/17 17:10 DC 10/19/17 17:35 4.5 GM Vancomycin HCl (Vancomycin 1gm Ed/Asu Omnicell) 1 gm NOW STAT IV 10/19/17 17:12 10/19/17 17:13 DC 10/19/17 17:10 1 GM Acetaminophen (Tylenol Supp) 650 mg NOW STAT OR 10/19/17 17:22 10/19/17 17:24 DC 10/19/17 17:25 650 MG Miscellaneous (Insulin Protocol Dka Goal Range) 1 ea ONE ONCE N/A 10/19/17 18:15 10/19/17 18:48 DC 10/19/17 18:15 1 EA Miscellaneous (Insulin Protocol Severe Stress) 1 ea ONE ONCE N/A 10/19/17 18:15 10/19/17 18:48 DC 10/19/17 18:15 1 EA Procedure Indication: Hypotension and tachycardia Oral consent was obtained after the risks and benefits were explained to the daughter, including but not limited to pain and cardiorespiratory arrest. At this time, the risks of the procedure are less than the risks of NOT performing the procedure. A time out was taken and the correct patient and procedure identified. The patient was on 100% via NRB. Suction, airway equipment, medications, respiratory equipment, ACLS cart, and appropriate personnel were prepared prior to the initiation of the procedure. The biphasic defibrillator was set to 200 joules of energy and synched. After confirmation of sedation and "all clear" safety check I did deliver the synchronized shock. This resulted in his heart rate decreasing to 140 but remaining in atrial fibrillation. ECG Per My Interpretation Indication: tachycardia Rate (beats per minute): 155 Rhythm: atrial fibrillation (with RVR) Findings: other (LAD, QRS is 76 milliseconds) ED Course 1643: The patient was evaluated in room A1. A complete history and physical exam was performed. 1656: I performed a cardioversion of 200 Joules. The patient was in the 220s and dropped to 143. 1701: Ordered Sodium Chloride 1000 mL @ 999 mL/hr IV. 1709: Ordered Zosyn 4.5 gm IV. 1712: Ordered Vancomycin HCl 1 gm IV 1722: Acetaminophen 650 mg OR. 1736: The patient's blood pressure is now 99/83. I spoke with the patient's family about the potential use of pressors and a central line placement. At this time they would like to hold off on these measures if possible. 1758: I discussed the case with Dr. Mota - [facility] Sustainable Design Consultant and Dr. Shanta Paige - [facility] Hospitalist. They will evaluate the patient for further treatment. Medical Decision This is a 77-year-old male who presents with decreased responsiveness, tachycardia and hypotension. Differential diagnosis includes sepsis, UTI, pneumonia, reentrant tachyarrhythmia, SVT, A. fib. I did perform a limited focused review of portions of the patient's old chart on the electronic medical record. The patient has had no recent pertinent visits to this hospital. I did provide prehospital medical command for the patient. I did evaluate the patient immediately on arrival as noted above. He had oral secretions and was in severe respiratory distress. I did have respiratory immediately suctioned the patient out and he was doing much better. We did get out thick white and yellow secretions. The patient was placed on a continuous reservationist. He is tachycardic with a heart rate over 200. He is hypotensive. I did obtain history from the paramedics as well as the patient's daughter. She did agree to cardioversion due to his hypotension and heart rate. I did perform electrical cardioversion as described above with 200 J. His heart rate did go down to 143 but he remained in atrial fibrillation. His blood pressure did improve significantly. I did give him a liter normal saline IV. I did order and personally review the patient's 12-lead EKG and chest x-ray as described above. His chest x-ray demonstrates a left lower lobe pneumonia. I did order and review the patient's blood work as noted in the electronic medical record. Stat labs indicated an elevated creatinine as well as sodium. He was given additional IV fluids for a total of 30 mL /kg. He also has a lactic acid greater than 7. Blood cultures were obtained. A urine cath was obtained which showed cloudy urine. Rectal temperature showed fever. I did treat the patient with Zosyn IV and vancomycin IV. I did reassess the patient multiple times. I did discuss the test results with the patient's daughter. I did discuss the possibility of using pressors and placing a central line but the daughter was not in favor of this at this time. We will continue fluid resuscitation. I did discuss the case with the hospitalist as well as the jail officer. The patient was admitted to the ICU. Medication Reconcilliation Current Medication List: was personally reviewed by me Blood Pressure Screening Patient's blood pressure: Low blood pressure Consults Time Called: 1556 Consulting Physician: Dr. Nakul MALDONADO Sustainable Design Consultant Dr. Shanta Olivares [facility] Returned Call: [phone] I discussed the case with Dr. Nakul MALDONADO Sustainable Design Consultant and Dr. Shanta Olivares [facility] Hospitalist. They will evaluate the patient for further treatment. Impression Primary Impression: Sepsis Additional Impressions: Atrial fibrillation with RVR Acute renal failure Hypernatremia Hyperglycemia Left lower lobe pneumonia UTI (urinary tract infection) Tachyarrhythmia Critical Care I have personally spent 50 minutes of critical care time in the direct management of this patient. This includes bedside care, interpretation of diagnostic studies, and testing, discussion with consultants, patient, and family members, and other required patient management activities. This 50 minutes is in excess of all separately billable procedures. Scribe Attestation The scribe's documentation has been prepared under my direct and personally reviewed by me in its entirety. I confirm that the note above accurately reflects all work, treatment, procedures, and medical decision making performed by me. Departure Information Dispostion Being Evaluated By Hospitalist Referrals No Doctor, Assigned (PCP) Problem Qualifiers Primary Impression: Sepsis Sepsis type: sepsis due to unspecified organism Qualified Codes: A41.9 - Sepsis, unspecified organism Additional Impressions: Acute renal failure Acute renal failure type: unspecified Qualified Codes: N17.9 - Acute kidney failure, unspecified Left lower lobe pneumonia Pneumonia type: due to unspecified organism Qualified Codes: J18.1 - Lobar pneumonia, unspecified organism UTI (urinary tract infection) Urinary tract infection type: acute cystitis Hematuria presence: with hematuria Qualified Codes: N30.01 - Acute cystitis with hematuria
--- NOTE | 2017-10-19 22:43 | DIAGNOSTIC IMAGING REPORT ---
KUB HISTORY: Status post placement of an enteric tube ng tube placement COMPARISON: CT abdomen and pelvis 09/03/2012, chest radiograph of same day FINDINGS: The bowel gas pattern is non-obstructive. Feeding tube is noted projecting over the left lung base. Bowel gas pattern is nonobstructive. Opacities of the left lung base redemonstrated. There is no organomegaly. No renal calculi. No ureteral calculi. No pneumoperitoneum or pneumatosis. No fracture. IMPRESSION: 1. Feeding tube projects over the left lung base. Repositioning with follow-up imaging is needed. 2. Nonobstructive bowel gas pattern. Electronically signed by: Abhinav Watts M.D. 10/19/2017 10:42 PM Dictated Date/Time: 10/19/2017 10:39 PM
[2017-10-19] MEDS ORDERED: ACETAMINOPHEN IV 100 ML IV PRN (22:45)
[2017-10-19 23:57] LABS: CALCIUM 8.5 mg/dl (8.5-10.1); CREATININE 2.78 mg/dl (0.60-1.40); PHOSPHORUS 2.8 mg/dl (2.5-4.9); POTASSIUM 3.8 mmol/L (3.5-5.1)
[2017-10-19 23:59] VITALS: O2SAT 100
[2017-10-20] VITALS (35 sets, daily range): BP systolic 59–97; BP diastolic 34–63; PULSE 88–185; TEMP 36.4–38.4; O2SAT 10–100; Ht 182.9 cm; Wt 85.2 kg
[2017-10-20] MEDS ORDERED: POTASSIUM CHLR 10 MEQ / WTR 10 MEQ in PREMIXED WATER 100 ML IV STA (00:28)
[2017-10-20] MEDS: PIPERACILL/TAZOBAC IV 4.5 GM in NSS 100 ML IV SCH ×2 (00:40→07:58)
[2017-10-20] MEDS: LACTATED RINGER'S 1000ML 1,000 ML IV SCH ×2 (01:13→05:23)
[2017-10-20 02:42] LABS: CKMB 4.7 ng/ml (0.5-3.6)
[2017-10-20 03:54] LABS: PTT PATIENT 277.5 SECONDS (21.0-31.0)
[2017-10-20 06:10] LABS: CALCIUM 8.1 mg/dl (8.5-10.1); CREATININE 2.33 mg/dl (0.60-1.40); POTASSIUM 3.7 mmol/L (3.5-5.1)
[2017-10-20 06:15] LABS: PTT PATIENT 125.1 SECONDS (21.0-31.0)
[2017-10-20] MEDS ORDERED: POTASSIUM PHOS 3 MMOL/1 ML INFUSION IV STA (06:19)
[2017-10-20 06:21] LABS: HEMATOCRIT 39.2 % (42-52); HEMOGLOBIN 12.3 g/dL (14.0-18.0); MEAN CELL VOLUME 100.5 fL (80-100); MEAN CORPUSCULAR HEMOGLOBIN 31.5 pg (25-34); MEAN CORPUSCULAR HGB CONC 31.4 g/dl (32-36); RED CELL DISTRIBUTION WIDTH CV 13.7 % (11.5-14.5); RED CELL DISTRIBUTION WIDTH SD 49.8 fL (36.4-46.3); WHITE BLOOD COUNT 11.71 K/uL (4.8-10.8)
[2017-10-20] MEDS ORDERED: POTASSIUM PHOSPHATE INJ 15 MMOL in SODIUM CHLORIDE 0.9% 250ML 250 ML IV STA (06:25)
[2017-10-20 06:26] LABS: PLATELET COUNT 69 K/uL (130-400)
[2017-10-20 06:42] LABS: BASO % 0.1 %; BASO ABS # 0.01 K/uL (0-0.2); IG# 0.27 K/uL (0.00-0.02); LYMPH % 17.2 %; LYMPH ABS # 2.01 K/uL (1.2-3.4); MONO % 4.3 %; NEUT % 76.1 %; NEUT ABS # 8.92 K/uL (1.4-6.5)
[2017-10-20] MEDS: MAGNESIUM SULFATE 1GM / D5W 1 GM in PREMIXED IN D5W 100 ML IV SCH ×2 (06:47→07:42)
[2017-10-20] MEDS: IPRATROPIUM BROMIDE NEB SOLN 0.02% 2.5 ML VIAL INH SCH ×2 (07:00→11:15)
[2017-10-20] MEDS: LEVALBUTEROL 1.25MG/0.5ML NEB INH SCH ×3 (07:00→15:48)
[2017-10-20 07:22] LABS: PTT PATIENT 79.7 SECONDS (21.0-31.0)
[2017-10-20] MEDS ORDERED: D5W AND 1/2NSS + 40MEQ KCL 1,000 ML IV SCH (08:15)
[2017-10-20] MEDS: METOPROLOL TARTRATE 100 MG TAB PO SCH (08:30)
[2017-10-20] MEDS ORDERED: PANTOprazole SOD 40 MG TAB PO SCH (09:00)
[2017-10-20] MEDS ORDERED: DILTIAZEM HCL 120 MG EXT REL CAP PO SCH (09:00)
[2017-10-20 09:05] LABS: BLOOD UREA NITROGEN 62 mg/dl (7-18); CALCIUM 8.4 mg/dl (8.5-10.1); CARBON DIOXIDE 24 mmol/L (21-32); CKMB 4.7 ng/ml (0.5-3.6); GLUCOSE 146 mg/dl (70-99); PHOSPHORUS 2.4 mg/dl (2.5-4.9); POTASSIUM 3.9 mmol/L (3.5-5.1); SODIUM 157 mmol/L (136-145)
[2017-10-20] MEDS ORDERED: FAMOTIDINE IV INJ 20 MG in SYRINGE 3 ML IV SCH (11:00)
[2017-10-20] MEDS ORDERED: ADENOSINE IV SOLN 3 MG/ML 2 ML VIAL ONE (11:43)
[2017-10-20] MEDS ORDERED: FENTANYL CITRATE INJ 50 MCG/1 ML 2 ML VIAL ONE (11:47)
--- NOTE | 2017-10-20 11:58 | DIAGNOSTIC IMAGING REPORT ---
KUB HISTORY: Feeding tube placement COMPARISON: KUB 10/19/2017. FINDINGS: There is no feeding tube identified on this single image. The right side of the abdomen is also not included on this study. Bibasilar airspace opacities are again noted. Moderate stool within the colon. A few non-dilated gas-filled loops of small bowel. No renal calculi. No ureteral calculi. No pneumoperitoneum or pneumatosis. IMPRESSION: No feeding tube is identified on this study. Electronically signed by: Frankie Helms M.D. 10/20/2017 11:56 AM Dictated Date/Time: 10/20/2017 11:55 AM
[2017-10-20] MEDS ORDERED: CEFEPIME CONSULT ACTIVE PRN (12:15)
--- NOTE | 2017-10-20 15:29 | Critical Care Progress Note ---
Critical Care Progress Note Date of Service Oct 20, 2017. ICU Day ICU Day Number: [address] Mota Subjective No events overnight, no significant response to stimulation Objective General - Laying in bed, no response to verbal stimuli Eyes - PERRL, No icterus, ENT - Mucosa dry, no lesions or candidiasis, edentulous Neck - Supple, trachea midline, no masses or lymphadenopathy, Lungs - No paradoxical chest wall movement, extremely coarse, no wheezes or rales Heart - A fib RVR, No murmur, rubs, clicks, or gallops appreciated Abdomen - BS present, no bruits noted, tympanic to percussion, soft, nondistended, no organomegaly Neuro - [place] Coma Score: 6 Strength: Movement noted to all extremities Reflexes: normal and equal Assessment & Plan CV: * Hx of Chronic A. Fib * Recurrence of A. Fib RVR * Given adenosine 2 * Discussed electric cardioversion with daughter, given multiple comorbidities and decompensated status as well as review of the patient's living will she declined electrical cardioversion secondary compromise respiratory status and likelihood to induce pain * Attempted rate control with beta-giulia, given 2.5 mg aliquots held secondary to worsening hypotension * Troponin Elevated * Likely demand ischemia secondary to significant tachycardia with Rate > 200 * A. fib with RVR with Rate related changes * Hypotension * Per daughter: No vasopressor medication to be use. * Monitor telemetry Resp: * DNI/DNR: Continue supplemental O2 as indicated * LLL PNA * Continue IV Zosyn Fluids/Renal: * ALONDRA * Cr 3.13, Prior Values < 1 * Pts daughter declines HD if required * Benz to [place] * UTI * Present on admission * Hypernatremia Endocrine: * Hyperglycemia * Discontinued all fluids and insulin secondary to comfort measures only Neuro: * PRN pain medication * Pt currently hypotensive will monitor pain level * AMS * Likely 2/2 to infection * No heroic measures to be taken * History of dementia * Wheelchair-bound at baseline * History of CVA ID: * Abx: Zosyn for comfort * Discontinue Vancomycin GI/Nutrition: * NG discontinued secondary to daughter request Heme: * Discontinued heparin drip secondary to thrombus cytopenia I discussed the patient's prognosis and long-term goals with the daughter at the bedside. There is no reported additional family members. We both agree that while the dehydration may be correctable, the patient's current medical state is 1 of end-stage dementia and his present living situation the patient would find unacceptable to him. Accordingly we will discontinue invasive procedures and transition from active care to comfort care. In discussing the utilization of antibiotics we will continue with Zosyn for comfort against infection, however we will stop insulin infusion as well as fluids in accordance with the patient's advanced directive. Patient is critically ill due to profound dehydration and atrial fibrillation with rapid ventricular response. I have personally spent 70 minutes of critical care time in the direct management of this patient. This is a life/limb threatening event. This includes time spent evaluating patient, direct bedside care, chart review, placing orders, interpretation of diagnostic studies, discussion with consultants, patient, and/or family members regarding treatment decisions, as well as other required patient management activities. This time is exclusive of all separately billable procedures, and teaching time and separate from and in addition to any other critical care service time. Data Medications: Current Inpatient Medications Medications (Trade) Dose Ordered Sig/Дмитрий Route Start Time Stop Time Status Last Admin Dose Admin Al Hydrox/Mg Hydrox/Simethicone (Maalox Max Susp) 15 ml Q4H PRN PO 10/19/17 18:15 11/18/17 18:14 Levalbuterol (Xopenex 1.25MG/ 0.5ML Neb) 1.25 mg QIDR INH 10/19/17 20:00 11/18/17 19:59 10/20/17 11:15 1.25 MG Acetaminophen 100 ml @ 400 mls/hr Q8H PRN IV 10/19/17 22:45 11/18/17 22:44 10/19/17 23:00 400 MLS/HR Famotidine 20 mg/ Syringe 5 ml @ 2.5 mls/min DAILY@1100 IV 10/20/17 11:00 11/19/17 10:59 Cefepime HCl (Consult) 1 ea UD PRN N/A 10/20/17 12:15 11/19/17 12:14 Cefepime HCl 2000 mg/Syringe 20 ml @ 5 mls/min Q12@0400,1600 IV 10/20/17 16:00 10/27/17 15:59 Morphine Sulfate (MoRPHine SULFATE INJ) 2 mg Q15M PRN IV 10/20/17 12:30 11/03/17 12:29 Vital Signs: Date Time Temp Pulse Resp B/P (MAP) Pulse Ox O2 Delivery O2 Flow Rate FiO2 10/20/17 13:51 37.6 160 23 74/34 (47) 10/20/17 13:48 37.6 163 22 59/47 (51) 10/20/17 13:16 37.4 161 23 60/45 (50) 10/20/17 13:01 37.4 154 22 74/48 (57) 10/20/17 12:45 37.3 135 20 82/58 (66) 10/20/17 12:08 37.1 160 20 79/55 (63) 10/20/17 12:06 37.1 157 19 72/46 (55) 10/20/17 12:03 37.1 169 22 90/51 (64) 10/20/17 11:49 37.0 185 24 77/52 (60) 10/20/17 11:42 37.0 178 22 71/52 (58) 10/20/17 11:38 36.9 178 21 82/54 (63) 10/20/17 11:35 36.9 178 22 67/58 (61) 10/20/17 11:16 36.8 161 23 78/63 (68) 10/20/17 11:15 116 18 97 Nasal Cannula 2.0 10/20/17 11:01 36.8 162 21 87/62 (70) 100 Nasal Cannula 2.0 10/20/17 10:45 36.8 152 20 91/50 (64) 100 Nasal Cannula 2.0 10/20/17 10:00 36.4 105 18 86/43 (57) 94 Nasal Cannula 3.0 10/20/17 09:46 36.7 123 17 91/61 (71) 100 Nasal Cannula 3.0 10/20/17 09:35 36.7 107 19 92/53 (66) 99 Nasal Cannula 3.0 10/20/17 09:30 36.7 114 19 94 Nasal Cannula 3.0 10/20/17 09:23 36.7 100 18 79/51 (60) 93 Nasal Cannula 2.0 10/20/17 09:15 36.7 120 18 74/43 (53) 100 Nasal Cannula 2.0 10/20/17 09:08 36.7 151 19 77/55 (62) 90 Nasal Cannula 2.0 10/20/17 09:01 36.6 101 18 78/38 (51) 95 Nasal Cannula 2.0 10/20/17 09:00 36.6 91 18 95 10/20/17 08:30 36.6 105 17 100 BiPAP 50 10/20/17 08:00 36.6 94 17 97/51 (66) 99 BiPAP 50 10/20/17 08:00 BiPAP 50 10/20/17 08:00 BiPAP 10/20/17 07:30 102 10 50 10/20/17 07:30 36.7 96 16 100 BiPAP 50 10/20/17 07:00 102 18 100 BiPAP/CPAP 50 10/20/17 07:00 36.7 102 17 89/49 (62) 98 BiPAP 50 10/20/17 06:00 36.8 95 19 91/54 (66) 99 BiPAP 50 10/20/17 04:58 112 98 50 10/20/17 04:00 37.1 91 24 81/46 (58) 98 BiPAP 50 10/20/17 04:00 100 BiPAP 50 10/20/17 02:00 37.6 88 28 71/46 (54) 97 BiPAP 50 10/20/17 01:50 105 100 60 10/20/17 00:01 38.4 107 27 80/40 (53) 100 BiPAP 10/19/17 23:59 100 BiPAP 60 10/19/17 23:06 60 10/19/17 22:17 BiPAP 80 10/19/17 22:13 144 93 80 10/19/17 22:10 38.3 122 30 82/22 (41) 87 10/19/17 21:21 38.2 139 21 96/56 (78) 94 10/19/17 20:52 38.2 138 26 115/61 94 Non-Rebreather 15.0 10/19/17 20:49 38.2 115 23 115/61 (88) 10/19/17 19:55 119 30 103/82 98 Non-Rebreather 10/19/17 19:22 145 32 111/75 100 Non-Rebreather 15.0 10/19/17 18:58 38.0 119 34 115/67 100 Non-Rebreather 10/19/17 18:15 126 30 127/86 100 Non-Rebreather 15.0 10/19/17 17:31 157 34 99/83 99 Non-Rebreather 15.0 10/19/17 16:51 204 10/19/17 16:45 38.7 222 52 77/44 99 Non-Rebreather 15.0 10/19/17 16:45 Room Air Laboratory Results: Last 24 Hours Test 10/19/17 16:54 10/19/17 16:58 10/19/17 17:00 10/19/17 17:01 White Blood Count 6.83 K/uL Red Blood Count 4.95 M/uL Hemoglobin 16.1 g/dL Hematocrit 50.9 % Mean Corpuscular Volume 102.8 fL Mean Corpuscular Hemoglobin 32.5 pg Mean Corpuscular Hemoglobin Concent 31.6 g/dl Platelet Count 111 K/uL Neutrophils (%) (Auto) 71.9 % Lymphocytes (%) (Auto) 21.4 % Monocytes (%) (Auto) 6.3 % Eosinophils (%) (Auto) 0.0 % Basophils (%) (Auto) 0.1 % Neutrophils # (Auto) 4.91 K/uL Lymphocytes # (Auto) 1.46 K/uL Monocytes # (Auto) 0.43 K/uL Eosinophils # (Auto) 0.00 K/uL Basophils # (Auto) 0.01 K/uL RDW Standard Deviation 51.7 fL RDW Coefficient of Variation 13.8 % Immature Granulocyte % (Auto) 0.3 % Immature Granulocyte # (Auto) 0.02 K/uL Prothrombin Time 13.6 SECONDS Prothromb Time International Ratio 1.3 Activated Partial Thromboplast Time 25.1 SECONDS Partial Thromboplastin Ratio 1.0 Sodium Level 157 mmol/L Potassium Level 4.3 mmol/L Chloride Level 119 mmol/L Carbon Dioxide Level 22 mmol/L Anion Gap 16.0 mmol/L 24.0 mmol/L Blood Urea Nitrogen 67 mg/dl Creatinine 3.13 mg/dl Estimated GFR () 21.2 Estimated GFR (Non- 18.3 BUN/Creatinine Ratio 21.2 Random Glucose 526 mg/dl Calcium Level 9.2 mg/dl Total Bilirubin 1.0 mg/dl Aspartate Amino Transf (AST/SGOT) 29 U/L Alanine Aminotransferase (ALT/SGPT) 36 U/L Alkaline Phosphatase 117 U/L Troponin I 0.081 ng/ml Total Protein 8.0 gm/dl Albumin 3.0 gm/dl Globulin 5.0 gm/dl Albumin/Globulin Ratio 0.6 Beta-Hydroxybutyric Acid 25.93 mg/dL Bedside Lactic Acid Venous 7.75 mmol/L Urine Color DK YELLOW Urine Appearance TURBID Urine pH 5.5 Urine Specific [place] 1.020 Urine Protein 2+ Urine Glucose (UA) 3+ Urine Ketones TRACE Urine Occult Blood 2+ Urine Nitrite NEG Urine Bilirubin NEG Urine Urobilinogen NEG Urine Leukocyte Esterase LARGE Urine WBC (Auto) >30 /hpf Urine RBC (Auto) 5-10 /hpf Urine Hyaline Casts (Auto) /lpf Urine Epithelial Cells (Auto) 20-30 /lpf Urine Bacteria (Auto) 4+ Urine Pathogenic Casts /lpf Urine Yeast (Auto) Bedside Hemoglobin 16.7 g/dl Bedside Hematocrit 49 % Bedside Sodium 161 mEq/L Bedside Potassium 4.6 mEq/L Bedside Chloride 120 mEq/L Bedside Total CO2 22 mEq/l Bedside Blood Urea Nitrogen 62 mg/dl Bedside Creatinine 2.4 mg/dl Bedside Glucose (other) 522 mg/dl Bedside Ionized Calcium (Adelso) 1.12 mmol/l Test 10/19/17 18:57 10/19/17 20:35 10/19/17 20:44 10/19/17 21:37 Sodium Level 157 mmol/L Potassium Level 4.5 mmol/L Chloride Level 121 mmol/L Carbon Dioxide Level 21 mmol/L Anion Gap 15.0 mmol/L Blood Urea Nitrogen 64 mg/dl Creatinine 2.94 mg/dl Est Creatinine Clear Calc Drug Dose 23.5 ml/min Estimated GFR () 22.9 Estimated GFR (Non- 19.8 BUN/Creatinine Ratio 21.7 Random Glucose 500 mg/dl Calcium Level 8.7 mg/dl Phosphorus Level 6.0 mg/dl 3.6 mg/dl Magnesium Level 2.0 mg/dl 1.9 mg/dl Beta-Hydroxybutyric Acid 21.59 mg/dL Bedside Glucose 459 mg/dl 358 mg/dl Venous Blood pH 7.22 Test 10/19/17 22:31 10/19/17 23:03 10/19/17 23:10 10/19/17 23:31 Bedside Glucose 322 mg/dl 298 mg/dl Blood Gas Sample Site L Radial Bedside Blood Gas pH (LAB) 7.32 Bedside Blood Gas pCO2 (LAB) 30 mmHg Bedside Blood Gas pO2 (LAB) 164 mmHg Bedside Blood Gas HCO3 (LAB) 16 meq/L Bedside Blood Gas Total CO2 16 mEq/l Bedside Blood Gas Base Excess (LAB) -11.0 meq/L Bedside Blood Gas O2 Saturation 99.0 % Charyl Test Pass Oxygen Delivery Device BIPAP Bedside Oxygen Rate (breaths/min) 12 Bedside FiO2 80 % Blood Gas IPAP 10 Venous Blood pH 7.28 Sodium Level 158 mmol/L Potassium Level 3.8 mmol/L Chloride Level 124 mmol/L Carbon Dioxide Level 18 mmol/L Anion Gap 15.0 mmol/L Blood Urea Nitrogen 62 mg/dl Creatinine 2.78 mg/dl Est Creatinine Clear Calc Drug Dose 24.8 ml/min Estimated GFR () 24.5 Estimated GFR (Non- 21.1 BUN/Creatinine Ratio 22.4 Random Glucose 336 mg/dl Lactic Acid Level 10.5 mmol/L Calcium Level 8.5 mg/dl Phosphorus Level 2.8 mg/dl Magnesium Level 1.8 mg/dl Beta-Hydroxybutyric Acid mg/dL Procalcitonin 9.51 ng/ml Chemistry Specimen Hemolysis Test 10/20/17 00:31 10/20/17 01:31 10/20/17 02:01 10/20/17 02:30 Bedside Glucose 230 mg/dl 210 mg/dl 194 mg/dl Activated Partial Thromboplast Time 277.5 SECONDS Partial Thromboplastin Ratio 10.4 Creatine Kinase MB 4.7 ng/ml Creatine Kinase MB Ratio Troponin I 0.648 ng/ml Test 10/20/17 03:22 10/20/17 05:18 10/20/17 06:56 10/20/17 08:29 Bedside Glucose 183 mg/dl White Blood Count 11.71 K/uL Red Blood Count 3.90 M/uL Hemoglobin 12.3 g/dL Hematocrit 39.2 % Mean Corpuscular Volume 100.5 fL Mean Corpuscular Hemoglobin 31.5 pg Mean Corpuscular Hemoglobin Concent 31.4 g/dl Platelet Count 69 K/uL Neutrophils (%) (Auto) 76.1 % Lymphocytes (%) (Auto) 17.2 % Monocytes (%) (Auto) 4.3 % Eosinophils (%) (Auto) 0.0 % Basophils (%) (Auto) 0.1 % Neutrophils # (Auto) 8.92 K/uL Lymphocytes # (Auto) 2.01 K/uL Monocytes # (Auto) 0.50 K/uL Eosinophils # (Auto) 0.00 K/uL Basophils # (Auto) 0.01 K/uL RDW Standard Deviation 49.8 fL RDW Coefficient of Variation 13.7 % Immature Granulocyte % (Auto) 2.3 % Immature Granulocyte # (Auto) 0.27 K/uL Hypogranular Neutrophils 1+ Toxic Vacuolation 1+ Platelet Estimate DECREASED Hypochromasia PRESENT Echinocytes 1+ Activated Partial Thromboplast Time 125.1 SECONDS 79.7 SECONDS Partial Thromboplastin Ratio 4.8 3.1 Venous Blood pH 7.37 7.34 Venous Blood Partial Pressure CO2 41 mmHg Venous Blood Partial Pressure O2 48 mmHg Venous Blood HCO3 23 mmol/L Venous Blood Oxygen Saturation 81.4 % Venous Blood Base Excess -2.0 mEq/L Sodium Level 155 mmol/L 157 mmol/L Potassium Level 3.7 mmol/L 3.9 mmol/L Chloride Level 126 mmol/L 123 mmol/L Carbon Dioxide Level 23 mmol/L 24 mmol/L Anion Gap 6.0 mmol/L 9.0 mmol/L Blood Urea Nitrogen 67 mg/dl 62 mg/dl Creatinine 2.33 mg/dl 2.20 mg/dl Est Creatinine Clear Calc Drug Dose 29.6 ml/min 31.4 ml/min Estimated GFR () 30.3 32.5 Estimated GFR (Non- 26.2 28.1 BUN/Creatinine Ratio 28.5 28.1 Random Glucose 168 mg/dl 146 mg/dl Lactic Acid Level 4.5 mmol/L Calcium Level 8.1 mg/dl 8.4 mg/dl Phosphorus Level 2.0 mg/dl 2.4 mg/dl Magnesium Level 1.6 mg/dl 2.0 mg/dl Random Vancomycin Level 20.4 mcg/ml Creatine Kinase MB 4.7 ng/ml Creatine Kinase MB Ratio Troponin I 0.495 ng/ml
[2017-10-20] MEDS ORDERED: MoRPHine SULFATE 2 MG/ML CARP IV PRN (15:30)
[2017-10-20] MEDS: CEFEPIME IV 2,000 MG in SYRINGE 7.5 ML IV SCH (16:09)
[2017-10-20] MEDS: MoRPHine SULFATE 2 MG/ML CARP IV PRN (16:59)
[2017-10-20] MEDS ORDERED: SCOPOLAMINE 1.5 MG TDSY TD SCH (17:30)
[2017-10-20] MEDS: LORAZEPAM INJ 0.5 MG in SYRINGE 0.75 ML IV PRN (17:49)
[2017-10-20] MEDS ORDERED: LEVALBUTEROL 1.25MG/3ML NEB INH SCH (21:00)
--- NOTE | 2017-10-20 22:31 | Hospitalist Progress Note ---
Hospitalist Progress Note Date of Service Oct 20, 2017. Subjective Pt evaluation today including: physical exam, chart review, lab review, review of studies, conversation w/ independent marketing consultant, review of inpatient medication list Voiding: perry catheter in place Patient is obtunded and does not respond to verbal or tactile stimulation. Discussed the case with the fish cleaner today who had a discussion with family and the patient has been made comfort measures only with continued IV antibiotics as the only intervention. He was profoundly ill with septic shock, severe dehydration, hyperglycemia and DKA, pneumonia, UTI, and had SVT requiring DC cardioversion. This morning around 1030, he went back into SVT with a rate at times into the 190s and with hypotension. The patient's daughter told Dr. Mota that she no longer wanted him to have any intervention. When I saw him, his heart rate was in the 160s-170s, his blood pressure was in the 60s over 40s, but he appeared comfortable. The family was not present in the room. Additional Comments: Unobtainable due to patient being obtunded Objective Vital Signs Date Time Temp Pulse Resp B/P (MAP) Pulse Ox O2 Delivery O2 Flow Rate FiO2 10/20/17 13:51 37.6 160 23 74/34 (47) 10/20/17 13:48 37.6 163 22 59/47 (51) 10/20/17 13:16 37.4 161 23 60/45 (50) 10/20/17 13:01 37.4 154 22 74/48 (57) 10/20/17 12:45 37.3 135 20 82/58 (66) 10/20/17 12:08 37.1 160 20 79/55 (63) 10/20/17 12:06 37.1 157 19 72/46 (55) 10/20/17 12:03 37.1 169 22 90/51 (64) 10/20/17 11:49 37.0 185 24 77/52 (60) 10/20/17 11:42 37.0 178 22 71/52 (58) 10/20/17 11:38 36.9 178 21 82/54 (63) 10/20/17 11:35 36.9 178 22 67/58 (61) 10/20/17 11:16 36.8 161 23 78/63 (68) 10/20/17 11:15 116 18 97 Nasal Cannula 2.0 10/20/17 11:01 36.8 162 21 87/62 (70) 100 Nasal Cannula 2.0 10/20/17 10:45 36.8 152 20 91/50 (64) 100 Nasal Cannula 2.0 10/20/17 10:00 36.4 105 18 86/43 (57) 94 Nasal Cannula 3.0 10/20/17 09:46 36.7 123 17 91/61 (71) 100 Nasal Cannula 3.0 10/20/17 09:35 36.7 107 19 92/53 (66) 99 Nasal Cannula 3.0 10/20/17 09:30 36.7 114 19 94 Nasal Cannula 3.0 10/20/17 09:23 36.7 100 18 79/51 (60) 93 Nasal Cannula 2.0 10/20/17 09:15 36.7 120 18 74/43 (53) 100 Nasal Cannula 2.0 10/20/17 09:08 36.7 151 19 77/55 (62) 90 Nasal Cannula 2.0 10/20/17 09:01 36.6 101 18 78/38 (51) 95 Nasal Cannula 2.0 10/20/17 09:00 36.6 91 18 95 10/20/17 08:30 36.6 105 17 100 BiPAP 50 10/20/17 08:00 36.6 94 17 97/51 (66) 99 BiPAP 50 10/20/17 08:00 BiPAP 50 10/20/17 08:00 BiPAP 10/20/17 07:30 102 10 50 10/20/17 07:30 36.7 96 16 100 BiPAP 50 10/20/17 07:00 102 18 100 BiPAP/CPAP 50 10/20/17 07:00 36.7 102 17 89/49 (62) 98 BiPAP 50 10/20/17 06:00 36.8 95 19 91/54 (66) 99 BiPAP 50 10/20/17 04:58 112 98 50 10/20/17 04:00 37.1 91 24 81/46 (58) 98 BiPAP 50 10/20/17 04:00 100 BiPAP 50 10/20/17 02:00 37.6 88 28 71/46 (54) 97 BiPAP 50 10/20/17 01:50 105 100 60 10/20/17 00:01 38.4 107 27 80/40 (53) 100 BiPAP 10/19/17 23:59 100 BiPAP 60 10/19/17 23:06 60 Physical Exam General Appearance: no apparent distress, + pertinent finding (Lying in bed with mouth open and obtunded) Eyes: sclerae normal ENT: + pertinent finding (Mucous membranes dry) Neck: trachea midline Respiratory/Chest: no respiratory distress, no accessory muscle use, + pertinent finding (Coarse breath sounds throughout) Cardiovascular: no edema, + tachycardia (In the 170s there is regular, peripheral pulses barely palpable and thready, carotid pulse weak), + pertinent finding (Extremities still warm to the touch, no mottling) Abdomen: normal bowel sounds, non tender, soft Extremities: no pedal edema, no calf tenderness Neurologic/Psychiatric: + pertinent finding (Obtunded, no spontaneous movement) Skin: normal color, warm/dry, no rash Laboratory Results Last 24 Hours Test 10/19/17 22:31 10/19/17 23:03 10/19/17 23:10 10/19/17 23:31 Bedside Glucose 322 mg/dl 298 mg/dl Blood Gas Sample Site L Radial Bedside Blood Gas pH (LAB) 7.32 Bedside Blood Gas pCO2 (LAB) 30 mmHg Bedside Blood Gas pO2 (LAB) 164 mmHg Bedside Blood Gas HCO3 (LAB) 16 meq/L Bedside Blood Gas Total CO2 16 mEq/l Bedside Blood Gas Base Excess (LAB) -11.0 meq/L Bedside Blood Gas O2 Saturation 99.0 % Charly Test Pass Oxygen Delivery Device BIPAP Bedside Oxygen Rate (breaths/min) 12 Bedside FiO2 80 % Blood Gas IPAP 10 Venous Blood pH 7.28 Sodium Level 158 mmol/L Potassium Level 3.8 mmol/L Chloride Level 124 mmol/L Carbon Dioxide Level 18 mmol/L Anion Gap 15.0 mmol/L Blood Urea Nitrogen 62 mg/dl Creatinine 2.78 mg/dl Est Creatinine Clear Calc Drug Dose 24.8 ml/min Estimated GFR () 24.5 Estimated GFR (Non- 21.1 BUN/Creatinine Ratio 22.4 Random Glucose 336 mg/dl Lactic Acid Level 10.5 mmol/L Calcium Level 8.5 mg/dl Phosphorus Level 2.8 mg/dl Magnesium Level 1.8 mg/dl Beta-Hydroxybutyric Acid mg/dL Procalcitonin 9.51 ng/ml Chemistry Specimen Hemolysis Test 10/20/17 00:31 10/20/17 01:31 10/20/17 02:01 10/20/17 02:30 Bedside Glucose 230 mg/dl 210 mg/dl 194 mg/dl Activated Partial Thromboplast Time 277.5 SECONDS Partial Thromboplastin Ratio 10.4 Creatine Kinase MB 4.7 ng/ml Creatine Kinase MB Ratio Troponin I 0.648 ng/ml Test 10/20/17 03:22 10/20/17 05:18 10/20/17 05:26 10/20/17 06:56 Bedside Glucose 183 mg/dl 171 mg/dl White Blood Count 11.71 K/uL Red Blood Count 3.90 M/uL Hemoglobin 12.3 g/dL Hematocrit 39.2 % Mean Corpuscular Volume 100.5 fL Mean Corpuscular Hemoglobin 31.5 pg Mean Corpuscular Hemoglobin Concent 31.4 g/dl Platelet Count 69 K/uL Neutrophils (%) (Auto) 76.1 % Lymphocytes (%) (Auto) 17.2 % Monocytes (%) (Auto) 4.3 % Eosinophils (%) (Auto) 0.0 % Basophils (%) (Auto) 0.1 % Neutrophils # (Auto) 8.92 K/uL Lymphocytes # (Auto) 2.01 K/uL Monocytes # (Auto) 0.50 K/uL Eosinophils # (Auto) 0.00 K/uL Basophils # (Auto) 0.01 K/uL RDW Standard Deviation 49.8 fL RDW Coefficient of Variation 13.7 % Immature Granulocyte % (Auto) 2.3 % Immature Granulocyte # (Auto) 0.27 K/uL Hypogranular Neutrophils 1+ Toxic Vacuolation 1+ Platelet Estimate DECREASED Hypochromasia PRESENT Echinocytes 1+ Activated Partial Thromboplast Time 125.1 SECONDS 79.7 SECONDS Partial Thromboplastin Ratio 4.8 3.1 Venous Blood pH 7.37 Venous Blood Partial Pressure CO2 41 mmHg Venous Blood Partial Pressure O2 48 mmHg Venous Blood HCO3 23 mmol/L Venous Blood Oxygen Saturation 81.4 % Venous Blood Base Excess -2.0 mEq/L Sodium Level 155 mmol/L Potassium Level 3.7 mmol/L Chloride Level 126 mmol/L Carbon Dioxide Level 23 mmol/L Anion Gap 6.0 mmol/L Blood Urea Nitrogen 67 mg/dl Creatinine 2.33 mg/dl Est Creatinine Clear Calc Drug Dose 29.6 ml/min Estimated GFR () 30.3 Estimated GFR (Non- 26.2 BUN/Creatinine Ratio 28.5 Random Glucose 168 mg/dl Lactic Acid Level 4.5 mmol/L Calcium Level 8.1 mg/dl Phosphorus Level 2.0 mg/dl Magnesium Level 1.6 mg/dl Random Vancomycin Level 20.4 mcg/ml Test 10/20/17 07:33 10/20/17 08:29 10/20/17 09:33 10/20/17 10:57 Bedside Glucose 164 mg/dl 128 mg/dl 141 mg/dl Venous Blood pH 7.34 Sodium Level 157 mmol/L Potassium Level 3.9 mmol/L Chloride Level 123 mmol/L Carbon Dioxide Level 24 mmol/L Anion Gap 9.0 mmol/L Blood Urea Nitrogen 62 mg/dl Creatinine 2.20 mg/dl Est Creatinine Clear Calc Drug Dose 31.4 ml/min Estimated GFR () 32.5 Estimated GFR (Non- 28.1 BUN/Creatinine Ratio 28.1 Random Glucose 146 mg/dl Calcium Level 8.4 mg/dl Phosphorus Level 2.4 mg/dl Magnesium Level 2.0 mg/dl Creatine Kinase MB 4.7 ng/ml Creatine Kinase MB Ratio Troponin I 0.495 ng/ml Test 10/20/17 12:09 Bedside Glucose 132 mg/dl Assessment and Plan Patient is a 77 y/o male, with PMHx of dementia, chronic a.fib on Coumadin, T2DM , and BPH, who presented to ED from [facility] due to unresponsiveness and tachycardia. He was found to be in SVT and was hypotensive requiring DC cardioversion in the ER. He was found to be profoundly dehydrated with a sodium of 161, glucose in the 500s, with ALONDRA with a creatinine of 3, lactic acid of 7, and sepsis secondary to UTI and left lower lobe pneumonia. Also with a mildly elevated troponin suggestive of demand ischemia. Severe sepsis secondary to LLL PNA/UTI POA: With lactic acidosis, multisystem organ failure, profound dehydration, hypernatremia. Blood and urine cultures collected. -Received aggressive IV fluid resuscitation and lactate decreased, glucose decreased -Was on BiPAP, now on nasal cannula -Was on broad-spectrum antibiotics, now narrowed down to cefepime alone but can likely discontinue this as prognosis very poor -Now pursuing comfort measures -Transfer out of the ICU to the fourth floor -NG tube for feeds removed Chronic a.fib w/ RVR, SVT/hypotension-status post DC cardioversion/type II MS due to demand ischemia from SVT. Now back in ST with profound hypotension in the 60s systolic. Daughter does not want further cardioversion or treatment for this at this point given significant illness in the setting of end-stage dementia/previous terminal condition. Troponin mildly elevated and peaked at 0.6 and then trended downward. -No longer on rate controlling or rhythm controlling medications -Was on Heparin gtt, but now stopped due to comfort measures only -Discontinue Coumadin -We will add morphine and Ativan for shortness of breath/pain/and agitation DM 2/HHS-secondary to profound dehydration from sepsis-blood sugar in the 500s on admission - Holding home metformin and Glipizide -Provided with aggressive IV fluid resuscitation, which has now been stopped -Was on insulin drip which is now stopped ALONDRA secondary to dehydration/prerenal azotemia/ATN-creatinine trended down with IV fluids but remains elevated at 2.3 -Now stopping all IV fluids and pursuit of comfort measures Thrombocytopenia-likely due to element of DIC from sepsis. Platelets 69 -We will no longer follow CBC given comfort measures only Anxiety/depression: Ativan as needed at this point for anxiety [id number], was wheelchair-bound and lived in care home -No treatment BPH: Hold Flomax, has Perry catheter in place Code status: LEVEL V, DNR Dispo: Transfer to fourth floor for comfort measures only, palliative care consult placed
[2017-10-21] MEDS: CEFEPIME IV 2,000 MG in SYRINGE 7.5 ML IV SCH (05:09)
[2017-10-21] MEDS: MoRPHine SULFATE 2 MG/ML CARP IV PRN ×6 (05:14→23:56)
--- NOTE | 2017-10-21 07:15 | DIAGNOSTIC IMAGING REPORT ---
CHEST ONE VIEW PORTABLE CLINICAL HISTORY: 77 years-old Male presenting with hypoxia. TECHNIQUE: Portable upright AP view of the chest was obtained. COMPARISON: 10/19/2017. FINDINGS: Atherosclerosis of the aortic arch. Cardiac silhouette top normal in size. Interval increase in density of the patchy left lower lobe and lingula opacities. Small left pleural effusion suspected. No pneumothorax. Prominent skin folds noted over the upper thorax. Degenerative changes of the thoracic spine. Upper abdomen normal. IMPRESSION: 1. Increasing consolidation in the lingula and left lower lobe, concerning for worsening pneumonia. 2. Small right parapneumonic effusion. Electronically signed by: Wai Ulloa M.D. 10/21/2017 7:14 AM Dictated Date/Time: 10/21/2017 7:13 AM
[2017-10-21] MEDS: CHECK SCOPOLAMINE PATCH PLACEMENT SCH ×4 (09:27→23:49)
--- NOTE | 2017-10-21 13:12 | Palliative Care Consultation ---
Consultation Date of Consultation: Oct 21, 2017. Requesting Physician: Dr. Magdaleno Attending Physician: Dr. Temple and Dr. Magdaleno Reason for Consultation: Goals of Care History of Present Illness Pt is a 77 year old male who was recently admitted to the ICU for septic shock and SVT for which he required DC Cardioversion. Patient was placed on comfort measures only based on conversations between the Hardboard Grinder and family. Upon my assessment of the patient in the room, Patient is obtunded and does not respond to tactile or verbal stimuli. Patient in A-fib, but does not appear rapid. Patient's last B/P that was taken and consistently has been in the 60's systolic.Patient has been started on Morphine IV - has received 4 doses in the past 24 hours. Patient with abdominal diaphragmatic breathing and is requiring more frequent Morphine. No family was present in the room. Discussed the appropriateness of patient being GIP'd with Dr. Temple. Social History Smoking Status: Former Smoker History of Alcohol Use: No Drug Use: none Marital Status: Occupation Status: retired Review of Systems Patient obtunded and not responsive. Unable to participate in conversation regarding ROS. Allergies Coded Allergies: No Known Allergies (Verified , 01/15/14) Medications Current Inpatient Medications Medications (Trade) Dose Ordered Sig/Дмитрий Route Start Time Stop Time Status Last Admin Dose Admin Al Hydrox/Mg Hydrox/Simethicone (Maalox Max Susp) 15 ml Q4H PRN PO 10/19/17 18:15 11/18/17 18:14 Acetaminophen 100 ml @ 400 mls/hr Q8H PRN IV 10/19/17 22:45 11/18/17 22:44 10/19/17 23:00 400 MLS/HR Morphine Sulfate (MoRPHine SULFATE INJ) 2 mg Q15M PRN IV 10/20/17 12:30 11/03/17 12:29 10/21/17 12:23 2 MG Morphine Sulfate (MoRPHine SULFATE INJ) 1 mg Q1H PRN IV 10/20/17 15:30 11/03/17 15:29 Lorazepam (Ativan Inj) 0.5 mg Q4H PRN IV 10/20/17 15:30 11/19/17 15:29 Lorazepam 0.5 mg/ Syringe 1 ml @ 1 mls/min Q4H PRN IV 10/20/17 15:45 11/19/17 15:44 10/20/17 17:49 1 MLS/MIN Scopolamine (Transderm-Scop Patch) 1.5 mg Q72H TD 10/20/17 17:30 11/19/17 17:29 10/20/17 17:52 1.5 MG Miscellaneous (Remove Transderm-Scop Patch) 1 ea Q72H N/A 10/23/17 17:30 11/22/17 17:29 Miscellaneous Information (Check Scopolamine Patch Placement) 1 ea QS N/A 10/21/17 00:00 11/20/17 00:00 10/21/17 09:27 1 EA Physical Exam Date Time Temp Pulse Resp B/P (MAP) Pulse Ox O2 Delivery O2 Flow Rate FiO2 10/21/17 09:30 Nasal Cannula 2.0 10/21/17 00:00 Nasal Cannula 2.0 10/20/17 13:51 37.6 160 23 74/34 (47) 10/20/17 13:48 37.6 163 22 59/47 (51) 10/20/17 13:16 37.4 161 23 60/45 (50) 10/20/17 13:01 37.4 154 22 74/48 (57) General Appearance: + pertinent finding (Patient obtunded) ENT: + pertinent finding (mouth open, non verbal - mouth breathing and mouth dry) Respiratory: + rhonchi (coarse rhonchi throughout lobes) Cardiovascular: + irregularly irregular (patient with weak radial pulse ) Abdomen: non tender, soft Musculoskeletal: pertinent finding (unable to participate in assessment of muscle strength) Neurologic/Psychiatric: + pertinent finding (Patient not alert and does not respond to verbal or tactile stimuli) Skin: warm/dry, + pertinent finding (warm to touch skin) Assessment & Plan Palliative Performance Scale: 10 % Palliative Care encounter Symptom management Septic shock Palliative Care recommendations: - Continue comfort measures and DNR - As patient declines with low B/P and faint pulses, a Morphine gtt may be appropriate for the patient (Morphine 1mg/mL. Starting at 1mg titrate up by 1 mg Q15 minutes to comfort). - Consider GIP for the patient as appears imminent based on his current B/P and thready, weak pulse. Thank you kindly for this consult - we will continue to offer support as needed for this patient. Counseling and Coordination Total time spent 35 minutes with >50% of that time assessing and discussing symptom management with interdisciplinary team
[2017-10-21] MEDS: ATROPINE SULFATE 1% OP SOLN 5 ML BTL PO PRN ×3 (17:11→23:50)
--- NOTE | 2017-10-21 20:46 | Progress Note ---
Progress Note Date of Service Oct 21, 2017. Progress Note time - 2039 S: pt obtunded during the visit mild tachypnea 2 brothers at bedside they confirm he has been unresponsive all day O: gen - obtunded, tachypnea, mild retractions neck - no JVD mouth - MM very dry heart - tachy, irregular lungs - course BS b/l with wheezes and crackles abd - soft ext - cool feet A/P: 77 y/o male, with dementia, chronic a.fib, T2DM, anxiety/depression, and BPH, who presented to ED from [facility] with metabolic encephalopathy, severe hypernatremic dehydration, acute kidney failure, DKA, rapid a. fib with resulting shock (shock likely cardiogenic and/or septic), and UTI. After a short stay in the ICU the patient was transitioned to comfort care measures. He is obtunded today and is showing signs of worsening respiratory distress. Spoke with palliative care team - evaluate for inpatient hospice status. May need morphine drip come tonight or in the AM. Cont IV morphine prn in meantime, scopalamine patch, and ativan prn. Brothers updated at bedside. Offered casino cage supervisor consult but deferred by brothers for now. Suman Temple MD
[2017-10-21] MEDS: LORAZEPAM 2 MG/ML 1 ML VIAL IV PRN (21:01)
[2017-10-22] MEDS: ATROPINE SULFATE 1% OP SOLN 5 ML BTL PO PRN ×7 (05:08→21:50)
[2017-10-22] MEDS: MoRPHine SULFATE 2 MG/ML CARP IV PRN ×3 (05:08→10:05)
[2017-10-22] MEDS: LORAZEPAM INJ 0.5 MG in SYRINGE 0.75 ML IV PRN (05:21)
[2017-10-22] MEDS: CHECK SCOPOLAMINE PATCH PLACEMENT SCH ×2 (08:34→16:05)
[2017-10-22] MEDS: LORAZEPAM 2 MG/ML 1 ML VIAL IV PRN (09:02)
[2017-10-22] MEDS ORDERED: MoRPHine SULF/NSS 250MG/250ML 250 ML IV PRN (09:15)
[2017-10-22] MEDS ORDERED: NURSING VERBAL MED ORDER ONE ×2 (11:30→13:45)
--- NOTE | 2017-10-22 14:05 | Palliative Care Progress Note ---
Palliative Care Progress Note Date of Service Oct 22, 2017. Subjective Pt evaluation today including: physical exam, chart review, conversation w/ product support consultant, review of inpatient medication list Pain: Patient appears comfortable PO Intake: None Voiding: perry catheter in place Went by to check on patient twice today the first time no family at bedside the second time I assess the patient with nursing from hospice to assess for GIP appropriateness Review of Systems Unable to obtain patient is unresponsive Objective Vital Signs Date Time Temp Pulse Resp B/P (MAP) Pulse Ox O2 Delivery O2 Flow Rate FiO2 10/22/17 08:30 Nasal Cannula 2.0 10/22/17 00:00 Nasal Cannula 2.0 10/21/17 16:31 Nasal Cannula 2.0 Physical Exam General Appearance: + pertinent finding (Patient is unresponsive, patient appears comfortable, no labored breathing) ENT: + pertinent finding (Dry mucous membranes, excess oral pharyngeal secretions) Respiratory/Chest: no respiratory distress, + pertinent finding (Upper airway transmitted noises, in frequent periods of apnea less than 30 seconds) Cardiovascular: regular rate, rhythm Abdomen: + pertinent finding (Decreased bowel sounds) Extremities: + pertinent finding (1+ pedal edema) Neurologic/Psychiatric: + pertinent finding (Unresponsive to voice or touch) Skin: + cyanosis (Toes bilaterally right greater than left), + mottled Assessment and Plan (1) Palliative care encounter Assessment & Plan: Patient nearing end-of-life, appears comfortable, on morphine drip required 1 dose of IV Ativan and 3 as needed boluses of morphine since this morning. Secretions are adequately controlled with a scopolamine patch and as needed atropine drops. On first assessment today patient had mottled toes, on repeat assessment his toes are now cyanotic. Patient nearing end-of-life. Called daughter Alma-no answer, left message at 1120. Assessment patient at 1400 with nursing from [facility] hospice discussed GIP appropriateness. (2) Sepsis Status: Acute Assessment & Plan: Patient admitted with septic shock, now on comfort care (3) Unresponsive state Status: Acute Assessment & Plan: Patient appears comfortable, requires jail in order to assess for pain, anxiety and dyspnea on a patient who is unresponsive. Patient requiring a morphine IV drip with as needed IV morphine for dyspnea Palliative Performance Scale: 10 % Continued [facility] stay due to: other (Patient approaching end of life, is GIP appropriate) Discharge planning: uncertain Counseling and Coordination Total time spent 35 minutes with greater than 50% of the time spent at bedside assessing patient with nursing and with hospice.
--- NOTE | 2017-10-22 19:15 | Progress Note ---
Progress Note Date of Service Oct 22, 2017. Progress Note time - 1900 S: pt obtunded / unresponsive visible tachypnea and girgling breath sounds O: gen - obtunded, tachypnea, mild retractions, girgling breath sounds neck - no JVD mouth - MM very dry heart - tachy, irregular lungs - extensive crackles and upper airway noise along with increased work of breathing abd - soft ext - cool feet, pulses <1+ b/l A/P: 77 y/o male, with dementia, chronic a.fib, T2DM, anxiety/depression, and BPH, who presented to ED from [facility] with metabolic encephalopathy, severe hypernatremic dehydration, acute kidney failure, DKA, rapid a. fib with resulting shock (shock likely cardiogenic and/or septic), and UTI. After a short stay in the ICU the patient was transitioned to comfort care measures. [place] morphine infusion and titrate for optimal patient comfort. Spoke with palliative care team - evaluate for inpatient hospice status. Social work assisting with this. Spoke with daughter - she was agreeable to us contacting a Religious sales and business development manager to give blessing. She is ok with inpatient hospice as long as the hospice company doesn't contact her after his . (she is afraid this will make her more sad/upset) Cont scopalamine patch. Anticipate pt's next 48-72 hours. Suman Temple MD
[2017-10-23] MEDS: CHECK SCOPOLAMINE PATCH PLACEMENT SCH
[2017-10-23] MEDS: ATROPINE SULFATE 1% OP SOLN 5 ML BTL PO PRN (00:45)
--- NOTE | 2017-10-23 04:37 | Death Pronouncement Note ---
Pronouncement Note Date & Time of Oct 23, 2017. 03:30 Pronouncement At time of pronouncement the patients pupils were fixed and dilated, there was no spontaneous respiratory effort, no palpable pulse, no audible heart tones, and no response to pain or voice. 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
== END 2017-10-23 05:10 | disposition expired | DRG 871 ==
LOC: C.EDA 16:41 → C.MSICU 18:25 → ENRESERV 18:54 → C.4E 10-20 16:29
PROVIDERS: ADMIT Internal Medicine; ATTEND Internal Medicine
DX: A41.9 Sepsis, unspecified organism (principal); N17.9 Acute kidney failure, unspecified; E87.0 Hyperosmolality and hypernatremia; J18.9 Pneumonia, unspecified organism; E87.2 Acidosis; Z51.5 Encounter for palliative care; N39.0 Urinary tract infection, site not specified; E11.10 Type 2 diabetes mellitus with ketoacidosis without coma; G93.41 Metabolic encephalopathy; I24.8 Other forms of acute ischemic heart disease; F32.9 Major depressive disorder, single episode, unspecified; F03.90 Unspecified dementia, unspecified severity, without behavioral disturbance, psychotic disturbance, mood disturbance, and anxiety; R65.20 Severe sepsis without septic shock; I48.91 Unspecified atrial fibrillation; R00.0 Tachycardia, unspecified; Z66 Do not resuscitate; F41.9 Anxiety disorder, unspecified; E86.0 Dehydration; N40.0 Benign prostatic hyperplasia without lower urinary tract symptoms; I95.9 Hypotension, unspecified; D69.6 Thrombocytopenia, unspecified; Z87.891 Personal history of nicotine dependence; Z79.4 Long term (current) use of insulin; Z79.01 Long term (current) use of anticoagulants; Z79.82 Long term (current) use of aspirin; Z83.3 Family history of diabetes mellitus